=== PATIENT | male | born 1970 | race Caucasian/White ===

== ENCOUNTER 2016-10-12 10:06 | Day surgery (SDC) | payer BC, OTHER ==
--- NOTE | 2016-10-03 12:27 | HP ---
DATE OF ADMISSION:10/12/2016 . 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 Patient has had excision of masses of the anterior chest wall as well as right arm. They have represented cysts in the past. It is my suspicion that the 2 soft tissue masses back likely represent epidermal occlusion cysts. PATIENTS PAST MEDICAL HISTORY: Significant for GERD, hypertension, and underlying thyroid disorder. PAST SURGICAL HISTORY: Significant for spinal surgery in 1981 and 2008. He has had inguinal hernia surgery in 2013. ALLERGIES: None known. REGULAR MEDICATIONS: Synthroid, losartan. SOCIAL HISTORY: Negative for tobacco, negative for alcohol. FAMILY HISTORY: Father age 71 with history of sluggish thyroid and hypertension. Mother age 69 with history of sluggish thyroid and diabetes. REVIEW OF SYSTEMS: Otherwise, nil. PHYSICAL EXAMINATION: Back: The patient has a 1.5-cm mass involving the mid back just off to the right of the midline as well as one involving the superior right back. No other obvious lesions. No satellite lesions. No regional adenopathy. IMPRESSION: Soft tissue masses of the back x2. Suspect epidermal occlusion cysts. PLAN: Excision soft tissue masses back x2 under local anesthesia with sedation. Indications, alternatives, possible complications were reviewed. Consent obtained. ADENIKE GARCIA M.D. ROMANA/[id number] cc: Oli Graham MD
[2016-10-06 10:50] VITALS: BMI 29.8
[2016-10-12] MEDS ORDERED: LIDOCAINE HCL 1%, 10 MG/ML (20ML VIAL) ONE (12:42)
[2016-10-12] MEDS ORDERED: MIDAZOLAM HCL 2 MG/2 ML SINGLE DOSE VIAL ONE (13:21)
[2016-10-12] MEDS ORDERED: PROPOFOL 20 ML ONE (13:27)
[2016-10-12] MEDS ORDERED: ceFAZolin SODIUM 1 GM VIAL ONE (13:36)
[2016-10-12] MEDS ORDERED: LIDOCAINE 1%-EPI 1:100,000 30 ML MDV IJ ONE (13:37)
[2016-10-12] MEDS ORDERED: LIDOCAINE 1%/EPI 1:100000 (50 ML MULTI DOSE VIAL) INF ONE ×2 (13:40)
[2016-10-12] MEDS ORDERED: ONDANSETRON 4 MG/2 ML VIAL ONE (13:50)
[2016-10-12] MEDS ORDERED: KETOROLAC TROMETHAMINE 30 MG/1 ML VIAL ONE (13:50)
[2016-10-12] MEDS ORDERED: LIDOCAINE HCL/PF 2% SDV 5ML VIAL ONE (13:51)
[2016-10-12] MEDS ORDERED: BACITRACIN 30 GM TUBE TOPICAL OINTMENT ONE (13:53)
[2016-10-12] MEDS ORDERED: BACITRACIN 30 GM TUBE TOPICAL OINTMENT TP ONE (14:05)
[2016-10-12 14:52] VITALS: PULSE 52; TEMP 98.2
[2016-10-12 15:18] VITALS: BP 122/74
--- NOTE | 2016-10-12 20:43 | OP ---
DATE OF OPERATION: 10/12/2016 PREOPERATIVE DIAGNOSIS: Soft tissue mass right upper and right central back. POSTOPERATIVE DIAGNOSIS: Soft tissue mass right upper and right central back. PROCEDURE: Excision soft tissue mass right upper back/intermediate wound closure (3 cm) and Excision soft tissue central back/intermediate wound closure (3 cm). OPERATING SURGEON: Mingo Arevaol M.D. MAGNAFLUX OPERATOR: None. ANESTHESIA: Skip Mckeon MD / 1% lidocaine with epinephrine/MAC. 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 I thought they likely represented epidermal inclusion cysts. Indications, alternatives, possible complications reviewed. Consent obtained. DESCRIPTION OF PROCEDURE: With the patient in the left lateral decubitus position, the right upper and central back were prepped and draped in sterile fashion with chlorhexidine. Restricting our attention to the central back, a longitudinal 3-cm elliptical incision was made about the palpable abnormality and deepened into the subcutaneous space. Lesion was excised in its entirety with a rim of overlying normal skin and subcutaneous fat. After adequate hemostasis, the wound was closed in layers. The deeper subcutaneous tissues were approximated using interrupted 3-0 chromic suture. The subcuticular layer was approximated with 3-0 Vicryl sutures. Skin edges were approximated using continuos 5-0 nylon suture. Now turning our attention to the upper lesion, after placement again of local anesthesia, an elliptical oblique 3-cm lesion was made about the nodular abnormality. Again, this incision was deepened into the subcutaneous space. The wound was closed again as described for the above lesion. Bacitracin applied at each level. Dressings were applied. Surgery terminated. Sponge counts: Correct. Estimated blood loss: Minimal. Specimens: Soft tissue mass right upper and central back. Drains: None. Patient tolerated the procedure, and the procedure was terminated. MINGO AREVALO M.D. RR/[id number] cc: Saeid Aguilar
--- NOTE | 2016-10-14 11:40 | PATH ---
Surgical Pathology Report Patient Name: MAXX DELA CRUZ [facility]. Rec. #: [id number] /Age/Gender: 1970 (Age: 46) / M Account: [id number] Location: [facility] Taken: 10/12/2016 Received: 10/12/2016 Reported: 10/14/2016 Physicians: Mingo Arevalo M.D. Specimen(s) Received A: SOFT TISSUE MASS MID-BACK B: SOFT TISSUE MASS UPPER BACK Clinical History Soft tissue mass back x2 Final Diagnosis A. SKIN, MID BACK, EXCISION: EPIDERMAL INCLUSION CYST (KERATINOUS CYST). B. SKIN, UPPER BACK, EXCISION: EPIDERMAL INCLUSION CYST (KERATINOUS CYST). Electronically Signed Silvio Leiva M.D. Gross Description A. Received in formalin, labeled "soft tissue mass mid back," is a 2.7 x 1.0 cm lowry, elliptical, unoriented portion of skin excised to a depth of 1.0 cm. The epidermal surface is unremarkable. Sectioning reveals an intact cyst containing sebaceous material. Journal Entry Audit Clerk sections are submitted in one cassette. B. Received in formalin, labeled "soft tissue mass upper back," is a 2.7 x 0.9 cm lowry, elliptical, unoriented portion of skin excised to depth of 0.9 cm. The epidermal surface is unremarkable. Sectioning reveals a possible cyst. Journal Entry Audit Clerk sections are submitted in one cassette. /10/13/2016 saudi10/13/2016
== END 2016-10-12 15:20 | disposition home or self-care (01) ==
LOC: FASU 10:06
PROVIDERS: ATTEND Surgery
PROC: 0JB70ZZ Excision of Back Subcutaneous Tissue and Fascia, Open Approach (ICD-10-PCS; principal; 2016-10-12 11:30)
DX: D21.6 Benign neoplasm of connective and other soft tissue of trunk, unspecified (principal)
CPT/HCPCS: 88304-TC

== ENCOUNTER 2017-01-11 15:10 | Emergency (ER) | payer OTHER, BC ==
[2017-01-11 15:48] VITALS: BP 133/83; PULSE 60; TEMP 97.9; BMI 30.6
[2017-01-11] MEDS ORDERED: IBUPROFEN 600 MG TABLET (FP) PO ONE ×2 (17:19→17:24)
--- NOTE | 2017-01-11 17:25 | PDOC ---
History of Present Illness - General Chief Complaint: Injury Stated Complaint: FALL/ LT ELBOW, LT HIP, RT HAMSTRING PAIN Time Seen by Provider: 01/11/17 15:56 History Source: Patient Exam Limitations: No Limitations - History of Present Illness Initial Comments: 01/11/17 17:34 My Chief complaint: Pain left elbow, left hip area and left lower back pain History of present illness: Patient is a 46 year old [employer] with a history of hypertension, hypothyroidism, 4 previous lower back surgeries with spinal fusion from L2 to S1 here today due to patient tripping on root of a tree while at work. He fell on his left sidel hitting his left elbow, left hip and pelvis. Patient reports that pain in left elbow with movement however patient feels a tingling sensation from elbow to hand. He reports that he had his walkie talkie on his left hip area. He has slight point tenderness to his left lumbar paravertebral area with palpation. Denies any radiation of pain down his legs or any incontinency or any saddle anesthesia. He has not taken anything for pain. Occurred: reports: just prior to arrival Severity: reports: moderate Pain Location: reports: back (left lower ), pelvis (left lateral pelvis/ hip), upper extremity (left elbow) Method of Injury: Yes: fall (tripped over at tree root ) Modifying Factors: improves with: None Loss of Consciousness: no loss of consciousness Past History - Past Medical History Allergies/Adverse Reactions: Allergies Allergy/AdvReac Type Severity Reaction Status Date / Time No Known Allergies Allergy Verified 01/11/17 15:48 Home Medications: Ambulatory Orders Levothyroxine [Synthroid -] 50 mcg PO DAILY 07/31/15 Losartan/Hydrochlorothiazide [Losartan-Hctz 50-12.5 mg Tab] 1 each PO DAILY Anemia: No Asthma: No Cancer: No Cardiac Disorders: No CVA: No COPD: No CHF: No Dementia: No Diabetes: No GI Disorders: No Disorders: No HTN: Yes Hypercholesterolemia: No Liver Disease: No Seizures: No Thyroid Disease: Yes (HYPO.) - Surgical History Abdominal Surgery: Yes (HERNIA) Appendectomy: No Cardiac Surgery: No Cholecystectomy: No Lung Surgery: No Neurologic Surgery: No Orthopedic Surgery: Yes (spinal fusion 2x 82 1x83 [id number]) - Immunization History Td Vaccination: (05/16/06) Immunization Up to Date: Yes - Psycho/Social/Smoking Cessation Hx Anxiety: No Suicidal Ideation: No Smoking Status: No Smoking History: Never smoked Have you smoked in the past 12 months: No Number of Cigarettes Smoked Daily: 0 Information on smoking cessation initiated: No Hx Alcohol Use: No Drug/Substance Use Hx: No Substance Use Type: None Hx Substance Use Treatment: No Review of Systems - Review of Systems Able to Perform ROS?: Yes Constitutional: No: Symptoms Reported HEENTM: No: Symptoms Reported Respiratory: No: Symptoms reported Cardiac (ROS): No: Symptoms Reported ABD/GI: No: Symptoms Reported : No: Symptoms Reported Musculoskeletal: Yes: Back Pain (left lower, left lateral pelvis/hip ), Joint Pain (left elbow) Integumentary: No: Symptoms Reported Neurological: No: Symptoms reported *Physical Exam - Vital Signs Last Vital Signs Temp Pulse Resp BP Pulse Ox 97.9 F 60 18 133/83 97 01/11/17 15:44 01/11/17 15:44 01/11/17 15:44 01/11/17 15:44 01/11/17 15:44 - Physical Exam General Appearance: Yes: Appropriately Dressed Respiratory/Chest: positive: Lungs Clear, Normal Breath Sounds. negative: Chest Tender, Respiratory Distress Cardiovascular: positive: Regular Rhythm, Regular Rate, S1, S2 Musculoskeletal: positive: Normal Inspection, Vertebral Tenderness (left lumbar laterally ), Other (left lateral pelvis, hip). negative: CVA Tenderness, CVA Tenderness (R), CVA Tenderness (L) Extremity: positive: Normal Capillary Refill, Normal Inspection, Normal Range of Motion (left elbow ), Tender (left elbow ). negative: Swelling Integumentary: positive: Normal Color Neurologic: positive: Alert, Normal Response, Motor Strength 5/5 (b/l upper and lower extremities), Respond to painful stimul (b/l ), Responsive. negative: Numbness, Sensory Deficit (legs or arms ) Medical Decision Making - Medical Decision Making 01/11/17 17:39 Patient is a 46 year old [employer] with a history of hypertension, hypothyroidism, 4 previous lower back surgeries with spinal fusion from L2 to S1 here today due to patient tripping on root of a tree while at work. He fell on his left sidel hitting his left elbow, left hip and pelvis. Patient reports that pain in left elbow with movement however patient feels a tingling sensation from elbow to hand. He reports that he had his walkie talkie on his left hip area. He has slight point tenderness to his left lumbar paravertebral area with palpation. Denies any radiation of pain down his legs or any incontinency or any saddle anesthesia. He has not taken anything for pain. 01/11/17 17:39 r/o mali abnormality left elbow r/o mali abnormality lumbar spine r/o fracture left hip/pelvis PLAN: xray left elbow unspecific for millimeter calcification adjacent to the medial epicondyles. No definite soft tissue swelling likely secondary to chronic medial epicondylitis cannot exclude an acute injury presently. Correlate clinically per Dr. Oretga patient has minimal point tenderness to medial epicondyles (pt had Old chip fx according to pt) xray left hip/pelvic no acute pathology generative changes bilaterally per Dr. Ortega xray lumbar sacral spine no acute pathology fixation rods and screws in place L3 -S1 with chronic facet changes no gross evidence of acute injury per Dr. Ortega Ibuprofen 600 mg po now 01/11/17 18:29 follow up with your orthopedist as soon as possible follow up with occupational health 01/11/17 23:13 *DC/Admit/Observation/Transfer Diagnosis at time of Disposition: Elbow pain, left, Hip pain, left Low back pain Qualifiers: Chronicity: acute Back pain laterality: left Sciatica presence: without sciatica Qualified Code(s): M54.5 - Low back pain - Discharge Dispostion Disposition: HOME Condition at time of disposition: Stable - Referrals Referrals: Oli Graham MD [Primary Care Provider] - - Patient Instructions Additional Instructions: Follow up with orthopedist as soon as possible for further evaluation Avoid any strenuous activities or exercise until cleared by orthopedist to do so Take ibuprofen as needed as directed by client success manager for pain Return to emergency room if worsening pain or any numbness of the legs or groin or any incontinency Patient voiced understanding of discharge instructions and all questions were answered - Post Discharge Activity Work/School Note: Back to Work
== END 2017-01-11 18:37 | disposition home or self-care (01) ==
LOC: JERFT 15:10
DX: M54.5 Low back pain (principal); I10 Essential (primary) hypertension; Y99.0 Civilian activity done for income or pay; W01.0XXA Fall on same level from slipping, tripping and stumbling without subsequent striking against object, initial encounter; Y93.89 Activity, other specified; Y92.488 Other paved roadways as the place of occurrence of the external cause
CPT/HCPCS: 72100-TC; 73070-TC-LT; 73523-TC; 99281-25

== ENCOUNTER 2017-04-11 14:46 | Emergency (ER) | payer OTHER, BC ==
[2017-04-11 15:01] VITALS: BP 140/102; PULSE 67; TEMP 98.4; BMI 29.8
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
[2017-04-11] MEDS ORDERED: KETOROLAC TROMETHAMINE 60 MG/2 ML VIAL ONE (15:45)
[2017-04-11] MEDS ORDERED: diazePAM 5 MG TABLET ONE (15:45)
[2017-04-11] MEDS ORDERED: KETOROLAC TROMETHAMINE 60 MG/2 ML VIAL IM ONE (15:47)
[2017-04-11] MEDS ORDERED: diazePAM 5 MG TABLET PO ONE (15:47)
== END 2017-04-11 18:07 | disposition home or self-care (01) ==
LOC: JER 14:46
PROC: 3E0233Z Introduction of Anti-inflammatory into Muscle, Percutaneous Approach (ICD-10-PCS; principal; 2017-04-11)
DX: S16.1XXA Strain of muscle, fascia and tendon at neck level, initial encounter (principal); V43.54XA Car driver injured in collision with van in traffic accident, initial encounter; Y92.414 Local residential or business street as the place of occurrence of the external cause; Y93.89 Activity, other specified; Y99.0 Civilian activity done for income or pay; I10 Essential (primary) hypertension; E03.9 Hypothyroidism, unspecified; K21.9 Gastro-esophageal reflux disease without esophagitis
CPT/HCPCS: 99281-25

== ENCOUNTER 2017-04-24 14:15 | Emergency (ER) | payer BC, OTHER ==
[2017-04-24 14:25] VITALS: BP 142/103; PULSE 62; TEMP 98.4; BMI 31.1
--- NOTE | 2017-04-24 14:51 | PDOC ---
History of Present Illness <Alexey Kaplan - Last Filed: 04/24/17 19:34> - General History Source: Patient Exam Limitations: No Limitations - History of Present Illness Initial Comments: 04/24/17 19:39 M Patient with h/o diverticulitis hypertension, hypothyroidism (levothyroxine), GERD (omeprazole), tarsal tunnel syndrome, and spinolithesis s/p spinal fusion ( L2-Sacrum with screws and rods), sent by his pcp Dr. Graham to get evaluated in ED for acute flare of diverticulitis on LLQ pain and 3 episodes of diarrhea yesterday. No fever, nausea, vomiting, hematechezia or tarry stools. 04/24/17 19:42 <John Muñoz - Last Filed: 04/24/17 19:56> - General Chief Complaint: Pain Stated Complaint: LLQ ABD PAIN Time Seen by Provider: 04/24/17 14:47 Past History <Alexey Kaplan - Last Filed: 04/24/17 19:34> - Past Medical History Anemia: No Asthma: No Cancer: No Cardiac Disorders: No CVA: No COPD: No CHF: No Dementia: No Diabetes: No GI Disorders: Yes (DIVERTICULITIS) Disorders: No HTN: Yes Hypercholesterolemia: No Liver Disease: No Psychiatric Problems: No Seizures: No Thyroid Disease: Yes (HYPO.) - Surgical History Abdominal Surgery: Yes (HERNIA) Appendectomy: No Cardiac Surgery: No Cholecystectomy: No Lung Surgery: No Neurologic Surgery: No Orthopedic Surgery: Yes (spinal fusion 2x 82 1x83 [id number]) - Immunization History Td Vaccination: (05/16/06) Immunization Up to Date: Yes - Psycho/Social/Smoking Cessation Hx Anxiety: No Suicidal Ideation: No Smoking Status: No Smoking History: Never smoked Have you smoked in the past 12 months: No Number of Cigarettes Smoked Daily: 0 Information on smoking cessation initiated: No Hx Alcohol Use: (rare) Drug/Substance Use Hx: No Substance Use Type: None Hx Substance Use Treatment: No <John Muñoz - Last Filed: 04/24/17 19:56> - Past Medical History Allergies/Adverse Reactions: Allergies Allergy/AdvReac Type Severity Reaction Status Date / Time No Known Allergies Allergy Verified 04/11/17 14:50 Home Medications: Ambulatory Orders Levothyroxine [Synthroid -] 50 mcg PO DAILY 07/31/15 Losartan/Hydrochlorothiazide [Losartan-Hctz 50-12.5 mg Tab] 1 each PO DAILY Cyclobenzaprine HCl [Flexeril 10 mg] 10 mg PO BID PRN #20 tablet 04/11/17 Levofloxacin [Levaquin] 750 mg PO DAILY #10 tablet 04/24/17 Metronidazole [Flagyl -] 500 mg PO QID #40 tablet 04/24/17 Review of Systems - Review of Systems Constitutional: No: Symptoms Reported HEENTM: No: Symptoms Reported Respiratory: No: Symptoms reported Cardiac (ROS): No: Symptoms Reported ABD/GI: Yes: See HPI : No: Symptoms Reported Musculoskeletal: No: Symptoms Reported Integumentary: No: Symptoms Reported Neurological: No: Symptoms reported <John Muñoz - Last Filed: 04/24/17 19:56> *Physical Exam - Vital Signs Last Vital Signs Temp Pulse Resp BP Pulse Ox 98.4 F 62 18 142/103 96 04/24/17 14:15 04/24/17 14:15 04/24/17 14:15 04/24/17 14:15 04/24/17 14:15 <Alexey Kaplan - Last Filed: 04/24/17 19:34> - Vital Signs Last Vital Signs Temp Pulse Resp BP Pulse Ox 98.4 F 62 18 142/103 96 04/24/17 14:15 04/24/17 14:15 04/24/17 14:15 04/24/17 14:15 04/24/17 14:15 - Physical Exam General Appearance: Yes: Nourished, Appropriately Dressed. No: Apparent Distress HEENT: positive: EOMI, MAGGIE, Normal ENT Inspection Neck: positive: Trachea midline, Normal Thyroid. negative: Tender Respiratory/Chest: positive: Lungs Clear, Normal Breath Sounds. negative: Chest Tender Cardiovascular: positive: Regular Rhythm, Regular Rate, S1, S2 Gastrointestinal/Abdominal: positive: Normal Bowel Sounds, Tender (LLQ), Flat, Soft, Guarding. negative: Rebound Extremity: positive: Normal Capillary Refill Integumentary: positive: Normal Color, Dry, Warm. negative: Clammy, Diaphoresis <John Muñoz - Last Filed: 04/24/17 19:56> ED Treatment Course - LABORATORY CBC & Chemistry Diagram: 04/24/17 15:30 04/24/17 15:30 - ADDITIONAL ORDERS Additional order review: Laboratory Results 04/24/17 04/24/17 17:00 15:30 Sodium 136 Potassium 4.1 Chloride 102 Carbon Dioxide 27 Anion Gap 7 L BUN 17 Creatinine 1.0 Creat Clearance w eGFR > 60 Random Glucose 94 Calcium 9.5 Total Bilirubin 0.6 AST 18 ALT 17 Alkaline Phosphatase 56 D Total Protein 6.9 Albumin 4.4 Urine Color Yellow Urine Appearance Clear Urine pH 5.5 Ur Specific [place] 1.010 Urine Protein Negative Urine Glucose (UA) Negative Urine Ketones Negative Urine Blood Negative Urine Nitrite Negative Urine Bilirubin Negative Urine Urobilinogen 0.2 Ur Leukocyte Esterase Negative 04/24/17 15:30 RBC 4.35 MCV 92.6 MCHC 33.8 RDW 12.1 MPV 9.4 Neutrophils % 66.3 Lymphocytes % 18.5 Monocytes % 9.1 Eosinophils % 4.8 H Basophils % 1.3 - Medications Given in the ED: ED Medications Discontinued Medications Generic Name Dose Route Start Last Admin Trade Name Miguel PRN Reason Stop Dose Admin Ibuprofen 800 mg 04/24/17 16:19 04/24/17 16:40 Caldolor Injection - IVPB 04/24/17 16:20 800 mg ONCE ONE Administration <Alexey Kaplan - Last Filed: 04/24/17 19:34> - LABORATORY CBC & Chemistry Diagram: 04/24/17 15:30 04/24/17 15:30 <John Muñoz - Last Filed: 04/24/17 19:56> Medical Decision Making - Medical Decision Making 04/24/17 19:48 M with pmh of diverticulitis sent to ed for acute flare evaluation CT scan consistent with acute colitis/diverticulitis in distal descending colon without extravasation of air or abscess formation. PAtient started on IV metrodinazole and levofloxacin +pain management as well as rest of abx course outpatient PO f/u with Dr. Graham on or at Dr. Graham's convenience. <John Muñoz - Last Filed: 04/24/17 19:56> *DC/Admit/Observation/Transfer <Alexey Kaplan - Last Filed: 04/24/17 19:34> - Discharge Dispostion Admit: No <John Muñoz - Last Filed: 04/24/17 19:56> Diagnosis at time of Disposition: Diverticulitis Qualifiers: Diverticulitis site: large intestine Diverticulitis bleeding: without bleeding Diverticulitis complication: without perforation or abscess Qualified Code(s): K57.32 - Diverticulitis of large intestine without perforation or abscess without bleeding - Discharge Dispostion Disposition: HOME Condition at time of disposition: Good - Prescriptions Prescriptions: Metronidazole [Flagyl -] 500 mg PO QID #40 tablet Levofloxacin [Levaquin] 750 mg PO DAILY #10 tablet - Referrals Referrals: Oli Graham MD [Primary Care Provider] - - Patient Instructions Printed Discharge Instructions: DI for Diverticulitis Additional Instructions: Mr Darby- You do have diverticulitis. Start the antibiotics tomorrow. You got them here tonight before you left. Return to us if worse See Dr. Graham on Monday or
--- NOTE | 2017-04-24 15:25 | PDOC ---
Attending Attestation - Resident Resident Name: John Muñoz - ED Attending Attestation I have performed the following: I have examined & evaluated the patient, The case was reviewed & discussed with the resident, I agree w/resident's findings & plan, Exceptions are as noted - HPI HPI: 04/24/17 15:23 46 yo with hx of diverticulitis feels he is having a flare, after consultation with his physician comes to er for eval of abdominal pain possible diverticulitis - Physicial Exam PE: 04/24/17 15:24 Non toxic, NAD, Abd tender without peritoneal signs or surgical abdomen. - Medical Decision Making 04/24/17 15:[address] Muñoz's assessment and plan...... labs and ct, meds and iv hydration
[2017-04-24] MEDS ORDERED: IBUPROFEN 800 MG/8 ML IJ IVPB ONE ×2 (16:19→16:32)
[2017-04-24 16:41] LABS: ALBUMIN 4.4 g/dl (3.5-5.0); ALK PHOS 56 U/L (32-92); ANION GAP 7 (8-16); BILIRUBIN,TOTAL 0.6 mg/dl (0.2-1.0); CALCIUM 9.5 mg/dl (8.4-10.2); CO2 27 mmol/L (22-28); GLUCOSE,RANDOM 94 mg/dl (74-106); SGOT/AST 18 U/L (10-42); SGPT/ALT 17 U/L (10-40); TOT PROT 6.9 g/dl (6.4-8.3)
[2017-04-24 16:51] LABS: BASOPHIL 1.3 % (0-2.0); EOSINOPHIL 4.8 % (0-4.5); MCH 31.3 pg (25.7-33.7); MCHC 33.8 g/dl (32.0-35.9); MEAN CELL VOLUME 92.6 fl (80-96); MEAN PLT VOLUME 9.4 fl (7.5-11.1); NEUTROPHILS 66.3 % (42.8-82.8); PLATELET COUNT 220 K/MM3 (134-434); RDW 12.1 % (11.9-15.9); WHITE BLOOD COUNT 8.2 K/mm3 (4.0-10.8)
[2017-04-24 17:10] LABS: PH,URINE 5.5 (4.5-8); URINE APPEARANCE Clear; URINE BILIRUBIN Negative (NEGATIVE); URINE BLOOD Negative (NEGATIVE); URINE GLUCOSE (UA) Negative (NEGATIVE); URINE KETONE Negative (NEGATIVE); URINE LEUK ESTERASE Negative (NEGATIVE); URINE NITRITE Negative (NEGATIVE); URINE PROTEIN Negative (NEGATIVE); URINE UROBILINOGEN 0.2 (0.2-1.0)
[2017-04-24 17:11] LABS: URINE COLOR YELLOW
[2017-04-24] MEDS ORDERED: LEVOFLOXACIN 750 MG IVPB 150 ML IVPB ONE ×2 (19:22→19:24)
[2017-04-24] MEDS ORDERED: METRONIDAZOLE 500 MG PREMIXED 100 ML IVPB ONE ×2 (19:22→19:25)
== END 2017-04-24 20:55 | disposition home or self-care (01) ==
LOC: FER 14:15
PROC: 3E03329 Introduction of Other Anti-infective into Peripheral Vein, Percutaneous Approach (ICD-10-PCS; principal; 2017-04-24)
PROC: 3E033GC Introduction of Other Therapeutic Substance into Peripheral Vein, Percutaneous Approach (ICD-10-PCS; 2017-04-24)
DX: K57.32 Diverticulitis of large intestine without perforation or abscess without bleeding (principal); I10 Essential (primary) hypertension; E03.9 Hypothyroidism, unspecified; K21.9 Gastro-esophageal reflux disease without esophagitis; Z98.1 Arthrodesis status
CPT/HCPCS: 36415; 74177-TC; 80053; 81003; 85025; 99283-25

== ENCOUNTER 2017-06-23 13:26 | Emergency (ER) | payer BC, OTHER ==
[2017-06-23 13:31] VITALS: BP 128/93; PULSE 94; TEMP 98.1; BMI 29.8
[2017-06-23] MEDS ORDERED: LIDOCAINE 1%/EPI 1:100000 (20 ML MULTI DOSE VIAL) ONE (14:39)
--- NOTE | 2017-06-23 15:36 | PDOC ---
History of Present Illness - General Chief Complaint: Injury Stated Complaint: FALL Time Seen by Provider: 06/23/17 14:03 - History of Present Illness Initial Comments: 06/23/17 15:16 CHIEF COMPLAINT: laceration HISTORY OF PRESENT ILLNESS: 46 yo M with hx of HTN, spinal fusion and diverticulitis presents to fast track with laceration R veliz s/p fall. PAtient reports that he tripped and hit his leg onto a guardrail. Denies injury to any other part of the body, denies LOC. PAtient is ambulatory with normal gait in ED. PAtient states he received his last tetanus shot in 2014. PAST MEDICAL HISTORY: as per HPI FAMILY HISTORY: Denies SOCIAL HISTORY: Denies tobacco, alcohol, illicit drug use. SURGICAL HISTORY: Denies ALLERGIES: No known drug allergies REVIEW OF SYSTEMS General/Constitutional: Denies fever or chills. Denies weakness, weight change. HEENT: Denies change in vision. Denies ear pain or discharge. Denies sore throat. Cardiovascular: Denies chest pain or shortness of breath. Respiratory: Denies cough, wheezing, or hemoptysis. Gastrointestinal: Denies nausea, vomiting, diarrhea or constipation. Denies rectal bleeding. Genitourinary: Denies dysuria, frequency, or change in urination. Musculoskeletal: Denies joint or muscle swelling or pain. Denies neck or back pain. Skin and breasts: "I fell and hit my veliz on a guardrail." PHYSICAL EXAM General Appearance: Well-appearing, appropriately dressed. No apparent distress , no intoxication. HEENT: EOMI, PERRLA, normal ENT inspection, normal voice, TMs normal, pharynx normal. No conjunctival pallor. No photophobia, scleral icterus. Respiratory/Chest: Lungs CTAB. Cardiovascular: RRR. S1, S2. Vascular Pulses: Dorsalis-Pedis (R): 2+, Dorsalis-Pedis (L): 2+ Gastrointestinal/Abdominal: Normal bowel sounds. Abdomen soft, non-distended. No tenderness or rebound tenderness. No organomegaly, pulsatile mass, guarding , hernia, hepatomegaly, splenomegaly. Musculoskeletal/Extremities: Normal inspection. FROM of all extremities, normal capillary refill. Pelvis Stable. No CVA tenderness. No tenderness to extremities, pedal edema, swelling, erythema or deformity. Integumentary: 3 cm flap laceration, deep to muscle, to anterior R veliz with contused tissue. No bony exposure. Appropriate color, dry, warm. No cyanosis, erythema, jaundice or rash Neurologic: sandblast or shotblast equipment tender II-XII intact. Fully oriented, alert. Appropriate mood/affect. Motor strength 5/5. No appreciable EOM palsy, facial droop or sensory deficit. 06/23/17 15:21 Past History - Past Medical History Allergies/Adverse Reactions: Allergies Allergy/AdvReac Type Severity Reaction Status Date / Time No Known Allergies Allergy Verified 06/23/17 13:31 Home Medications: Ambulatory Orders Levothyroxine [Synthroid -] 50 mcg PO DAILY 07/31/15 Losartan/Hydrochlorothiazide [Losartan-Hctz 50-12.5 mg Tab] 1 each PO DAILY Cyclobenzaprine HCl [Flexeril 10 mg] 10 mg PO BID PRN #20 tablet 04/11/17 Anemia: No Asthma: No Cancer: No Cardiac Disorders: No CVA: No COPD: No CHF: No Dementia: No Diabetes: No GI Disorders: Yes (DIVERTICULITIS) Disorders: No HTN: Yes Hypercholesterolemia: No Liver Disease: No Psychiatric Problems: No Seizures: No Thyroid Disease: Yes (HYPO.) - Surgical History Abdominal Surgery: Yes (HERNIA) Appendectomy: No Cardiac Surgery: No Cholecystectomy: No Lung Surgery: No Neurologic Surgery: No Orthopedic Surgery: Yes (spinal fusion 2x 82 1x83 [id number]) - Immunization History Td Vaccination: (05/16/06) Immunization Up to Date: Yes - Suicide/Smoking/Psychosocial Hx Smoking Status: No Smoking History: Never smoked Have you smoked in the past 12 months: No Number of Cigarettes Smoked Daily: 0 Information on smoking cessation initiated: No Hx Alcohol Use: No Drug/Substance Use Hx: No Substance Use Type: None Hx Substance Use Treatment: No *Physical Exam - Vital Signs Last Vital Signs Temp Pulse Resp BP Pulse Ox 98.1 F 94 H 18 128/93 99 06/23/17 13:06/23/17 13:06/23/17 13:06/23/17 13:06/23/17 13:29 Procedures - Consent Consent obtained: Verbal - Laceration/Wound Repair Right Anterior Distal Leg Wound Length: 2.6 to 5.0 cm Wound Explored: clean, no foreign body present Wound's Depth, Shape: into muscle, irregular, flap, contused tissue Irrigated w/ Saline: Yes Betadine Prep: Yes Anesthesia: 1% Lidocaine w/ Epi Amount of Anesthetic (ccs): 6 Wound Repaired With: Sutures Suture Size/Type: 4:0 Number of Sutures: 6 Layer Closure: No Sterile Dressing Applied: Yes (xeroform, kerlix dressing) ED Treatment Course - RADIOLOGY Radiology Studies Ordered: Category Date Time Status LEG TIB/FIB-RIGHT [RAD] Stat Radiology 06/23/17 14:16 Completed Medical Decision Making - Medical Decision Making 06/23/17 15:36 46 yo M with hx of HTN, spinal fusion and diverticulitis presents to fast track with laceration R veliz s/p fall. -Tdap updated -laceration repair (see procedure note) Advised patient of post lac repair instructions and of signs and symptoms for return to ER. Advised patient to return to PCP or fast track in 10-14 days for suture removal. Patient verbalized understanding and agrees to plan. *DC/Admit/Observation/Transfer Diagnosis at time of Disposition: Laceration - Discharge Dispostion Disposition: HOME Condition at time of disposition: Stable Admit: No - Referrals Referrals: Oli Graham MD [Primary Care Provider] - - Patient Instructions Printed Discharge Instructions: DI for Laceration Repair -- Simple Additional Instructions: As discussed, please keep the area clean and dry for the next 24 hours. Afterwards you may wash with mild soap and warm water. Please return to fast track or your primary care doctor in 10-14 days for suture removal. If you develop any redness, swelling, warmth, or increased pain to the injury, or you develop fever, nausea, vomiting, diarrhea, chills, or any new or worsening symptoms, please return to the ER IMMEDIATELY.
== END 2017-06-23 15:24 | disposition home or self-care (01) ==
LOC: JERFT 13:26
PROC: 0JQN0ZZ Repair Right Lower Leg Subcutaneous Tissue and Fascia, Open Approach (ICD-10-PCS; principal; 2017-06-23)
DX: S81.811A Laceration without foreign body, right lower leg, initial encounter (principal); W22.8XXA Striking against or struck by other objects, initial encounter; Y93.89 Activity, other specified; Y92.89 Other specified places as the place of occurrence of the external cause; Y99.8 Other external cause status
CPT/HCPCS: 73590-TC-RT; 99281-25

== ENCOUNTER 2017-07-18 09:24 | Inpatient (IN) | payer BC, OTHER ==
[2017-07-20] MEDS ORDERED: PEG 3350/NA SULF BICARB CL/KCL 4000 ML SOLN.RECON PO ONE (11:30)
[2017-07-20 16:11] VITALS: BMI 31.1
[2017-07-21] MEDS ORDERED: LOSARTAN 50MG/HCTZ 12.5MG 1 TAB (FP) PO SCH ×2 (06:00→10:00)
[2017-07-21] MEDS ORDERED: ERTAPENEM SODIUM 1 GM in SODIUM CHLORIDE 50 ML IVPB ONE (07:00)
[2017-07-21] MEDS ORDERED: LEVOTHYROXINE NA 50 MCG TABLET (FP) PO SCH (07:00)
[2017-07-21] MEDS ORDERED: GlUCAGON HUMAN RECOMBINANT 1 MG/VIAL ONE (07:34)
[2017-07-21] MEDS ORDERED: PROPOFOL 20 ML ONE (07:54)
[2017-07-21] MEDS ORDERED: MIDAZOLAM HCL 2 MG/2 ML SINGLE DOSE VIAL ONE ×2 (07:54)
[2017-07-21] MEDS ORDERED: ROCURONIUM BROMIDE 50 MG/5 ML VIAL ONE ×4 (07:54→12:11)
[2017-07-21] MEDS ORDERED: ceFAZolin SODIUM 1 GM VIAL IVPB ONE (08:30)
[2017-07-21] MEDS ORDERED: ONDANSETRON 4 MG/2 ML VIAL ONE (08:43)
[2017-07-21] MEDS ORDERED: DEXAMETHASONE SOD PHOSPHATE 4 MG/1 ML VIAL ONE (08:43)
[2017-07-21] MEDS ORDERED: LIDOCAINE HCL/PF 2% SDV 5ML VIAL ONE (08:43)
[2017-07-21] MEDS ORDERED: LIDOCAINE HCL 2% JELLY (5 ML/TUBE) ONE (08:43)
[2017-07-21] MEDS ORDERED: NEOSTIGMINE METHYLSULFATE 0.5 MG/ML - 10 ML MDV ONE (12:39)
--- NOTE | 2017-07-21 12:49 | OP ---
Operative Note - Note: Operative Date: 07/21/17 Pre-Operative Diagnosis: diverticulitis Operation: laparoscopic low anterior resection Findings: thickened sigmoid colon, significant abdominal adhesions Post-Operative Diagnosis: Same as Pre-op Surgeon: Phi Walden Fighter Pilot: Sin Bell Anesthesia: General Specimens Removed: rectosigmoid colon Estimated Blood Loss (mls): 50 Drains & Tubes with Location: solitario pelvis Operative Report Dictated: Yes
[2017-07-21] MEDS: HYDROmorphone HCL CARPU-JECT 2 MG/1 ML DISP.SYRIN ONE ×2 (13:40→14:05)
[2017-07-21] MEDS: HYDROmorphone HCL CARPU-JECT 2 MG/1 ML DISP.SYRIN IVPB ONE ×3 (13:55→17:04)
[2017-07-21] MEDS ORDERED: ONDANSETRON 4 MG/2 ML VIAL IVPUSH PRN (13:56)
[2017-07-21] MEDS ORDERED: LACTATED RINGERS SOLUTION 1,000 ML IV SCH ×2 (14:00)
[2017-07-21] MEDS: HYDROmorphone HCL CARPU-JECT 1 MG/1 ML DISP.SYRIN IVPUSH ONE ×2 (15:00→17:04)
[2017-07-21] MEDS: D5-1/2NS+20 MEQ KCL - 1,000 ML IV SCH (17:04)
[2017-07-21] MEDS: morphine CARPU-JECT 8 MG/1 ML DISP.SYRIN IVPB PRN ×2 (18:27→21:33)
--- NOTE | 2017-07-21 19:14 | OP ---
DATE OF OPERATION: 07/21/2017 PREOPERATIVE DIAGNOSIS: History of recurrent diverticulitis, complicated diverticulitis. POSTOPERATIVE DIAGNOSIS: History of recurrent diverticulitis, complicated diverticulitis. PROCEDURE: Laparoscopic low anterior resection, extensive lysis of adhesions, anal dilatation, rigid sigmoidoscopy, peritoneal lavage. SURGEON: Phi Walden MD INSURANCE POLICY CLERK: Sin Bell DO ANESTHESIA: Lindsey Robbins MD (general). ESTIMATED BLOOD LOSS: Minimal. SPECIMEN: Rectosigmoid. INDICATIONS FOR PROCEDURE: This is a 48-year-old gentleman who has had multiple bouts of recurrent diverticulitis since 2010. Initially, he was managed medically. However, in 2017, he had a very bad attack that did respond to medical therapy, and therefore, he is here today for a laparoscopic low anterior resection for his chronic diverticular disease. Past medical comorbidities significant for hypothyroidism, H. pylori gastritis, multiple back issues and C7 radiculopathy. OPERATIVE FINDINGS: 1. Acutely and chronically inflamed diverticular segment of the distal sigmoid/proximal rectum with extension into the prerectal space, that is chronic changed from inflammatory disease. 2. Dense adhesions of small bowel to the retroperitoneum and pelvis. 3. Dense adhesions of omentum to the anterior abdominal wall and to his previous transverse lower abdominal scar. DESCRIPTION OF OPERATIVE PROCEDURE: Patient identified and appropriately positioned on the operating room table. After placement of general anesthesia, the patient was then subsequently placed in a low lithotomy position, the abdomen prepped with ChloraPrep and the perineal region prepped with Betadine. A supraumbilical incision was made, deepened to the subcutaneous tissue. The fascia was divided sharply. The peritoneum identified and incised, and under direct vision, a Veress needle followed by structural needle placed. Opening pressure of 3. The remaining ports were placed under direct vision. The only port to be placed initially was a 5-mm port through his left lower quadrant. This was the only portion of the abdomen that was entered without dense adhesions. Next, working through that 5-mm left lower quadrant port site, the omentum that was densely adherent to the anterior abdominal wall and lateral abdominal wall in the midline and right side was completely taken down with blunt, sharp, and LigaSure dissection as needed. Once the omentum was mobilized, the remaining ports were placed under direct vision as mentioned. At this point, the patient was then placed in a Trendelenburg position. The omentum reflected to the upper abdomen, as well as the small bowel. However, the distal ileum and a portion of the jejunum could not be mobilized into the upper abdomen due to the adhesions into the retroperitoneum and pelvic sidewalls from his previous anterior fusion and surgery. These adhesions were then subsequently taken down with sharp dissection and the bowel mobilized as best as possible. The fold of Treves was taken down as well to facilitate this movement of the small bowel. In total, the lysis of adhesions required over an hour to an hour and 1/2 of operative time just to go through all the dense adhesions from his previous anterior fusion operation. Once the adhesions were taken down, attention was now focused to the operative site. The patient clearly had diverticular disease in the distal sigmoid, extending into the proximal rectum. However, I suspect, based on his last episode, the disease had actually tracked into the presacral space and along the rectum. Typically, I would approach the mediolateral. However, with this finding, I did [id number]. The colon on the left side was then rolled medially, and the white line of Toldt was identified and sharply divided. The colon now rolled medially, and the structures in the retroperitoneum were left intact, such as the gonadal vessels. As the colon was rolled more medially, the retroperitoneum with the ureter was identified. The plane encasing the ureter was not violated at this point nor was it violated during the operation. This was left intact along the retroperitoneum. Next, the proximal and mid-rectum that had been densely adherent and scarred to the left pelvic sidewall and sacrum from the disease was then slowly mobilized out of the presacral space. This was done with blunt and sharp dissection. The inflamed peritoneal reflection on the left side was divided with the LigaSure device. Once the left side was mobilized, attention now focused to the right side. Using a similar technique, the peritoneal reflection on the right lateral wall of the rectum was mobilized and freed. The superior rectal vessels identified on both sides, and these were then subsequently taken. The rectum now brought out of the prerectal space and the rectum mobilized more into the operative field. The middle rectal vessels on the right and left identified as well and had to be divided to ensure a distal transection site without tension and to be free and easy for the anvil to come up without difficulty and being tethered. Next, the fat around the mid-rectum was then sharply taken with LigaSure device, and the bowel circumferentially cleaned of the mesentery of the rectum. At this point, the colon was now completely mobilized and lifted to the anterior abdominal wall. The presacral vessels were identified as well as the long rectal vessel that gave off the branches to the mesorectum. The mesorectum branches were taken with LigaSure device. The sacral branch was taken in a similar fashion. At this point, the colon was completely devascularized along the left side and sigmoid. The left colon now mobilized more medially and bluntly swept. The loose areolar tissue taken up to the level of the EMORY. At this point, the EMORY branch was not divided, and the gastrocolic ligament was brought down as well as the splenic flexure to ensure an adequate tension-free anastomosis. The splenic flexure was taken down with the LigaSure device, and the splenocolic, gastrocolic, and renocolic ligaments were divided in a similar fashion. Once this was accomplished, there was enough play in the colon to do a tension-free anastomosis without violating the EMORY. The distal line of resection was chosen earlier and divided with a PAO 80 purple-load stapler. Two fires were placed. The second fire was placed into the crotch and well visualized to overlap the first staple line. Grossly, the staple line was intact. The distal rectal stump was pink and viable. At this point, the suprapubic port site was removed under direct vision, and going through his old scar, an incision was made down to the level of the fascia. The fascia was then divided transversely, and using a Pfannenstiel technique, the fascia was off the rectus muscle. The rectus muscle in the midline was divided longitudinally and a wound protector placed. At this point, the operative field was draped off with 4 new drapes and the proximally divided colon brought into the operative field. A colotomy was made, and a 28 anvil was placed and closed over with a PAO 80 3.5-mm stapler. The anvil itself was spiked through the center line of the staple. However, given the lie of the anvil not being perfect, the staple line was subsequently divided, and a hand-sewn 3-0 Prolene pursestring was placed. The anvil was placed under direct vision again and the pursestring cinched and then tied at the level of the anvil with a 2-0 silk tie. The bowel proximally was pink and viable as well without evidence of ischemia. The bowel returned to its anatomic position, the wound protector removed as well as the new drapes. Surgeon and hair or beauty salon assistant changed gloves. The peritoneum was then reapproximated with a running 3-0 Maxon suture. The anterior sheath closed with a running No. 1 PDS suture. The subcutaneous space irrigated. The operative field examined, noted to be hemostatic. At this point, the hair or beauty salon assistant went below, performed an anal dilatation to approximately 3 fingerbreadths, and dilators were subsequently placed under direct vision to the rectal stump staple line, followed by the 28 EEA stapler. The stapler spiked right through the mid-aspect of the transverse staple line and the rectal stump. The 2 ends mated, and the proximal end was made sure not to be twisted. The stapler closed to its appropriate pressure and position. At this point, circumferential evaluation of the 2 ends of the colon that were brought together was noted, and no external tissue was encompassed in the staple line. The stapler fired; stapler removed. Grossly, the staple appeared to be intact. Again, the bowel proximal and distal to the anastomosis was pink and viable. At this point, the anastomosis was submerged in the pelvis under water and air tested for 3 separate times, and there were no air bubbles or leak identified. Next, the rigid sigmoidoscope was opened. The air that was pumped beyond the staple line was milked back, looking for a leak, with a flap effect, and none was identified. At this point, the hair or beauty salon assistant performed limited rigid sigmoidoscopy. Just proximal to the anastomosis, the bowel clearly proximal to the anastomosis (rectum) was pink and viable as well as the bowel distal to this anastomosis (left colon). A 10 flat ANNIE placed and brought through a left lower quadrant port site. The remaining ports removed under direct vision. Port sites were hemostatic. The 12-mm port site was reapproximated with interrupted 0 Vicryl suture, as well as the camera site. All skin closed with abraham. The extraction site was left open and packed with Iodoform gauze. At the conclusion of the case, sponge counts were correct. ATTESTATION: A brief operative note handwritten on the preprinted form. Saeid SHARPE [id number]
[2017-07-22] MEDS: morphine CARPU-JECT 8 MG/1 ML DISP.SYRIN IVPB PRN ×4 (05:45→21:50)
[2017-07-22] MEDS: LEVOTHYROXINE NA 50 MCG TABLET (FP) PO SCH (06:30)
[2017-07-22] MEDS ORDERED: ERTAPENEM SODIUM 1 GM in SODIUM CHLORIDE 50 ML IVPB ONE (07:00)
[2017-07-22 07:23] LABS: MCH 31.8 pg (25.7-33.7); MCHC 35.1 g/dl (32.0-35.9); MEAN CELL VOLUME 90.5 fl (80-96); MEAN PLT VOLUME 8.5 fl (7.5-11.1); PLATELET COUNT 238 K/MM3 (134-434); RDW 12.8 % (11.9-15.9); WHITE BLOOD COUNT 11.7 K/mm3 (4.0-10.0)
--- NOTE | 2017-07-22 07:29 | PN ---
Progress Note (short form) - Note Progress Note: surgery pt seen and examined. feels well. oob. no flatus. minimal discomfort afebrile abd- soft, nt, incisions clean, solitario serous u/o 2600 Laboratory Tests 07/22/17 06:00 WBC 11.7 H chemistry peding A/P 1) Pod#1- cont npo except ice chips, cont ivf, cont thomson, cont solitario 2) prophylaxis- finish invanz, on lovenox, protonix, oob, spirometer 3) discomfort- morphine, oxycodone 4) diverticulitis- follow path 5) follow chemistries
[2017-07-22 07:52] LABS: ANION GAP 5 (8-16); CALCIUM 8.1 mg/dL (8.5-10.1); CO2 32 mmol/L (21-32); GLUCOSE,RANDOM 93 mg/dL (74-106); MAGNESIUM 1.8 mg/dL (1.8-2.4)
[2017-07-22 07:55] LABS: CREATININE 1.3 mg/dL (0.7-1.3); PHOSPHOROUS 3.3 mg/dL (2.5-4.9)
[2017-07-22] MEDS: LOSARTAN 50MG/HCTZ 12.5MG 1 TAB (FP) PO SCH (09:25)
[2017-07-22] MEDS: PANTOPRAZOLE SODIUM 40 MG VIAL IVPUSH SCH (09:25)
[2017-07-22] MEDS: ENOXAPARIN NA (PORCINE) 40 MG/0.4 ML DISP.SYRIN SQ SCH (09:25)
--- NOTE | 2017-07-22 11:38 | PN ---
Progress Note (short form) - Note Progress Note: Anesthesia post op note POD#1. S/P Lap lower anterior resection, diverticulitis. Pat seen and examined. VSS. No apparent post anesthesia complications.Signed off.
[2017-07-22] MEDS: ACETAMINOPHEN 325 MG TABLET (FP) PO PRN ×2 (12:39→18:30)
[2017-07-22] MEDS: oxyCODONE HCL 5 MG TABLET PO PRN ×2 (12:39→18:30)
[2017-07-22] MEDS: D5-1/2NS+20 MEQ KCL - 1,000 ML IV SCH (21:47)
[2017-07-23] MEDS: oxyCODONE HCL 5 MG TABLET PO PRN ×3 (01:29→22:45)
[2017-07-23] MEDS: LEVOTHYROXINE NA 50 MCG TABLET (FP) PO SCH (06:25)
[2017-07-23] MEDS: morphine CARPU-JECT 8 MG/1 ML DISP.SYRIN IVPB PRN (06:25)
--- NOTE | 2017-07-23 09:57 | PN ---
Progress Note (short form) - Note Progress Note: surgery pt seen and examined. still well. oob. no flatus. no discomfort. afebrile abd- soft, nt, moderate distension, u/o 1800 cbc pending A/P 1) Pod#2- cont npo except ice chips, cont ivf, cont thomson, cont solitario 2) prophylaxis- lovenox, protonix, oob, spirometer 3) discomfort- morphine, oxycodone 4) diverticulitis- follow path 5) follow cbc
[2017-07-23] MEDS: LOSARTAN 50MG/HCTZ 12.5MG 1 TAB (FP) PO SCH (10:38)
[2017-07-23] MEDS: ENOXAPARIN NA (PORCINE) 40 MG/0.4 ML DISP.SYRIN SQ SCH (10:38)
[2017-07-23] MEDS: PANTOPRAZOLE SODIUM 40 MG VIAL IVPUSH SCH (10:39)
[2017-07-23 11:02] LABS: BASOPHIL 0.4 % (0-2.0); MCH 31.2 pg (25.7-33.7); MCHC 34.3 g/dl (32.0-35.9); MEAN PLT VOLUME 8.3 fl (7.5-11.1); NEUTROPHILS 76.7 % (42.8-82.8); PLATELET COUNT 243 K/MM3 (134-434); RDW 12.7 % (11.9-15.9); WHITE BLOOD COUNT 11.2 K/mm3 (4.0-10.0)
[2017-07-23] MEDS: ACETAMINOPHEN 325 MG TABLET (FP) PO PRN ×2 (19:00→22:45)
[2017-07-23] MEDS: D5-1/2NS+20 MEQ KCL - 1,000 ML IV SCH ×2 (19:02→22:47)
[2017-07-23] MEDS: ARTIFICIAL TEARS (POLYVINYL ALCOHOL 1.4%) OPTH DROPS OU PRN (22:54)
[2017-07-24] MEDS: LEVOTHYROXINE NA 50 MCG TABLET (FP) PO SCH (06:44)
[2017-07-24] MEDS: ARTIFICIAL TEARS (POLYVINYL ALCOHOL 1.4%) OPTH DROPS OU PRN (06:44)
[2017-07-24 08:37] LABS: ANION GAP 7 (8-16); CO2 30 mmol/L (21-32); GLUCOSE,RANDOM 91 mg/dL (74-106)
[2017-07-24 08:38] LABS: CREATININE 1.1 mg/dL (0.7-1.3)
[2017-07-24] MEDS: oxyCODONE HCL 5 MG TABLET PO PRN ×3 (09:03→23:31)
[2017-07-24] MEDS: PANTOPRAZOLE SODIUM 40 MG VIAL IVPUSH SCH (09:08)
[2017-07-24] MEDS: ENOXAPARIN NA (PORCINE) 40 MG/0.4 ML DISP.SYRIN SQ SCH (09:08)
[2017-07-24] MEDS: LOSARTAN 50MG/HCTZ 12.5MG 1 TAB (FP) PO SCH (09:08)
[2017-07-24] MEDS: ACETAMINOPHEN 325 MG TABLET (FP) PO PRN ×3 (09:26→23:28)
[2017-07-24] MEDS ORDERED: ONDANSETRON 4 MG/2 ML VIAL ONE (09:53)
[2017-07-24 10:36] LABS: BASOPHIL 0.8 % (0-2.0); EOSINOPHIL 3.1 % (0-4.5); MCH 31.6 pg (25.7-33.7); MCHC 34.3 g/dl (32.0-35.9); MEAN CELL VOLUME 92.1 fl (80-96); MEAN PLT VOLUME 8.9 fl (7.5-11.1); NEUTROPHILS 71.9 % (42.8-82.8); PLATELET COUNT 238 K/MM3 (134-434); RDW 12.5 % (11.9-15.9); WHITE BLOOD COUNT 10.3 K/mm3 (4.0-10.0)
[2017-07-24 13:03] LABS: ANION GAP 6 (8-16); CALCIUM 8.5 mg/dL (8.5-10.1); CO2 30 mmol/L (21-32); CREATININE 1.1 mg/dL (0.7-1.3); GLUCOSE,RANDOM 130 mg/dL (74-106); MAGNESIUM 1.9 mg/dL (1.8-2.4); PHOSPHOROUS 2.7 mg/dL (2.5-4.9)
--- NOTE | 2017-07-24 13:50 | PN ---
Progress Note (short form) - Note Progress Note: surgery pt seen and examined. flatus and bm. some blood in stool afebrile abd- soft, nt, less distension, u/o 2300 Laboratory Tests 07/24/17 07/24/17 10:30 12:20 WBC 10.3 H Sodium 135 L A/P 1) Pod#3- cont npo except ice chips, cont ivf, cont thomson, cont solitario 2) prophylaxis- lovenox, protonix, oob, spirometer 3) discomfort- morphine, oxycodone 4) diverticulitis- follow path 5) wbc wnl 6) hyponatremia- will change to ns
[2017-07-24] MEDS ORDERED: oxyCODONE HCL 5 MG TABLET ONE (14:19)
--- NOTE | 2017-07-24 16:56 | PATH ---
Surgical Pathology Report Patient Name: MAXX DELA CRUZ Med. Rec. #: [id number] /Age/Gender: 1970 (Age: 46) / M Account: [id number] Location: [facility] MED/SURG Taken: 07/21/2017 Received: 07/21/2017 Reported: 07/24/2017 Physicians: Phi Walden Specimen(s) Received RECTO SIGMOID COLON Clinical History Diverticulitis large intestine, left upper quadrant pain Final Diagnosis RECTOSIGMOID COLON, LAPAROSCOPIC LOW ANTERIOR RESECTION: PORTION OF COLON WITH ACUTE DIVERTICULITIS AND ASSOCIATED PERFORATION IN A BACKGROUND OF DIVERTICULOSIS. ACUTE SEROSITIS AND FOCAL ADHESIONS. SURGICAL MARGINS ARE VIABLE. Electronically Signed Brittney Madrigal M.D. Gross Description Received in formalin labelled "rectosigmoid colon stitch staples distal" is a 14 cm in length by up to 5 cm in diameter segment of colon with a suture marking the distal end. The specimen is sutured at both ends. An area of perforation is present at the serosal aspect, 0.5 cm from the proximal end. The serosa has focal adhesions. Examination of the mucosa reveals apparent diverticula formation in the area of perforation. No additional mucosal masses or lesions are identified. No enlarged mesenteric lymph nodes are identified. Trigonometry Teacher sections are submitted as follows: 1-proximal margin, 2-distal margin, 3 and 4-area of perforation 5-additional asset protection representative section of colon. [facility]/07/21/2017 [facility]/07/21/2017
[2017-07-24] MEDS: POTASSIUM CHLORIDE 10 MEQ in DEXTROSE 5%-NORMAL SALINE 1,000 ML IVPB SCH (17:45)
[2017-07-24] MEDS ORDERED: ACETAMINOPHEN 325 MG TABLET (FP) PO PRN (17:49)
[2017-07-25] MEDS: LEVOTHYROXINE NA 50 MCG TABLET (FP) PO SCH (06:10)
[2017-07-25] MEDS: POTASSIUM CHLORIDE 10 MEQ in DEXTROSE 5%-NORMAL SALINE 1,000 ML IVPB SCH (06:11)
[2017-07-25 08:52] LABS: BASOPHIL 0.8 % (0-2.0); MCH 31.3 pg (25.7-33.7); MCHC 34.5 g/dl (32.0-35.9); MEAN CELL VOLUME 90.5 fl (80-96); MEAN PLT VOLUME 8.4 fl (7.5-11.1); NEUTROPHILS 61.1 % (42.8-82.8); PLATELET COUNT 284 K/MM3 (134-434); RDW 12.8 % (11.9-15.9); WHITE BLOOD COUNT 7.5 K/mm3 (4.0-10.0)
--- NOTE | 2017-07-25 09:16 | HP ---
DATE OF DICTATION: 05/30/2017 REASON FOR ADMISSION: History of complicated diverticulitis. BRIEF HISTORY: This is a 46-year-old gentleman whose history dates back to approximately 2010, when he had two bouts of acute diverticulitis, each documented on CT and treated with p.o. antibiotics. Patient resolved fairly quickly with that treatment. In 2012, he had a repeat attack that was managed with p.o. antibiotics as well and documented on CT scan. Patient had seen me at that time and given the paucity of finding on exam as well patients quick recovery, we have discussed the pros and cons of elective operation at that time versus medical management, and we felt it best that this gentleman be managed medically. Now, in 2016, in March, the patient had an acute attack of left-sided pain consistent with acute diverticulitis documented on CT scan. Patient was placed on Flagyl and Levaquin again. It took nearly the entire course of treatment for him to start feeling better. He is now better without fever or acute abdominal pain. However, he has chronic discomfort in the left side of his abdomen. He has had no fever, chills, or sweats, and appetite has returned to normal. He has also undergone a full endoscopy and colonoscopy in June of 2016. The colonoscopy was unremarkable except for diverticular disease. The colonoscopy was performed by Dr. Pryor. PAST MEDICAL HISTORY: Patient has a history of hypothyroidism, H. pylori gastritis, GERD, plantar fasciitis, carpal tunnel syndrome, C7 radiculopathy. PAST SURGICAL HISTORY: In 1981, patient had a Davis anel inserted for spondylothiasis by Dr. Mccarty. Following that operation, he had an abdominal spinal fusion where a portion of his iliac crest was removed and placed between L4-L5 and S1. This was done through an abdominal approach. Then, he had the Davis rods removed in 1982 and had undergone a spinal fusion in 2008. 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 He does not smoke. He drinks socially. MEDICATIONS: Omeprazole, losartan, Synthroid, and vitamins. ALLERGIES: None. PHYSICAL EXAMINATION: Lungs: Clear. Heart: Regular rhythm. Abdomen: Soft, mildly obese, nondistended. There is some left-sided tenderness with some very mild guarding to moderate palpation. No rebound. Rectal: Examination deferred. Patient had colonoscopy a year ago. IMPRESSION/PLAN: Recurrent diverticulitis: This is a 46-year-old gentleman with four documented bouts of recurrent diverticulitis. The most recent bout was in March of 2017. This was the worst bout to date. Patient took almost a week to start feeling better with oral antibiotics. We have discussed the pros and cons of surgery at this time, and the patient has opted to proceed with an elective colon resection in hopes of avoiding future diverticular complications. Due to the extensive surgical history of this gentleman with his back and his anterior approached spinal fusion, he is at more risk to develop surgical scarring intraabdominally that may preclude a laparoscopic approach, and therefore, he has a higher risk of opening. Due to the scarring and previous surgeries had and diverticular disease, he is more likely to have possibility of injury to the ureters and surrounding structures. This has all been conveyed to this gentleman and his at length and in great detail. They understand the risks of surgery and still want to proceed with an elective colon resection. Patient will be scheduled for a laparoscopic low anterior resection, possible ostomy, and possible conversion to an open procedure. Prior to surgery, the patient will undergo a repeat CT scan to ensure that his most recent event is completely resolved, and that there are no radiographic findings of inflammatory change (patient has still tenderness on the left side). Assuming the CT is negative, patient will be scheduled for surgery. 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 Saeid SHARPE [id number] cc: Dr. Kaufman, Dr. Pryor, Dr. Graham.
[2017-07-25 09:20] LABS: ANION GAP 8 (8-16); CALCIUM 8.6 mg/dL (8.5-10.1); CO2 29 mmol/L (21-32); GLUCOSE,RANDOM 94 mg/dL (74-106); MAGNESIUM 2.2 mg/dL (1.8-2.4); PHOSPHOROUS 3.7 mg/dL (2.5-4.9)
[2017-07-25] MEDS: oxyCODONE HCL 5 MG TABLET PO PRN (11:30)
[2017-07-25] MEDS: LOSARTAN 50MG/HCTZ 12.5MG 1 TAB (FP) PO SCH (11:30)
[2017-07-25] MEDS: PANTOPRAZOLE SODIUM 40 MG VIAL IVPUSH SCH (11:31)
[2017-07-25] MEDS: ACETAMINOPHEN 325 MG TABLET (FP) PO PRN (11:31)
[2017-07-25] MEDS: ENOXAPARIN NA (PORCINE) 40 MG/0.4 ML DISP.SYRIN SQ SCH (11:31)
--- NOTE | 2017-07-25 12:45 | PN ---
Progress Note (short form) - Note Progress Note: surgery pt seen and examined. still bm and flatus. hungry. no discomfort. afebrile abd- soft, nt, less distension Laboratory Tests 07/25/17 07:45 WBC 7.5 A/P 1) Pod#4- full liquids, stop ivf, remove thomson in am, cont solitario 2) prophylaxis- lovenox, protonix, oob, spirometer 3) discomfort- morphine, oxycodone 4) diverticulitis- path confirms 5) wbc wnl 6) hyponatremia- resolved
[2017-07-25] MEDS ORDERED: NYSTATIN POWDER 100,000 UNITS/GM - 15 GM TOPICAL POWDER TP PRN (17:46)
[2017-07-26] MEDS: oxyCODONE HCL 5 MG TABLET PO PRN ×2 (03:42→13:08)
[2017-07-26] MEDS: ACETAMINOPHEN 325 MG TABLET (FP) PO PRN ×2 (03:45→11:59)
[2017-07-26 05:36] VITALS: TEMP 98.1
[2017-07-26] MEDS: LEVOTHYROXINE NA 50 MCG TABLET (FP) PO SCH (06:09)
[2017-07-26] MEDS ORDERED: PANTOPRAZOLE 40 MG TABLET (FP) PO SCH ×2 (10:30→11:00)
[2017-07-26] MEDS: ENOXAPARIN NA (PORCINE) 40 MG/0.4 ML DISP.SYRIN SQ SCH (10:38)
[2017-07-26] MEDS: PANTOPRAZOLE SODIUM 40 MG VIAL IVPUSH SCH (10:38)
[2017-07-26] MEDS: LOSARTAN 50MG/HCTZ 12.5MG 1 TAB (FP) PO SCH (10:38)
[2017-07-26 11:31] VITALS: BP 141/73; PULSE 71
[2017-07-26] MEDS ORDERED: oxyCODONE HCL 5 MG TABLET ONE (13:07)
--- NOTE | 2017-07-26 14:33 | DS ---
DATE OF ADMISSION: 07/20/2017 DATE OF DISCHARGE: 07/26/2017 ADMITTING DIAGNOSIS: Complicated diverticulitis. DISCHARGE DIAGNOSIS: Complicated diverticulitis. BRIEF HISTORY: This is a 46-year-old male who presented to [facility] for surgical management of complicated diverticulitis. He was admitted on July 20, underwent IV hydration and bowel preparation. On July 21, he underwent a laparoscopic low anterior resection. Please reference Dr. Phi Walden's operative report for further details. His postoperative course was uneventful. He is being discharged home today, July 26, tolerating liquid diet. He is voiding, he is passing gas, and he is having bowel movements. He will go home with a new prescription for Percocet, which he will take as needed for pain. He will resume his usual home medications of losartan, hydrochlorothiazide, and Synthroid. He will follow with Dr. Walden in 1 to 2 weeks' time to be evaluated for Jerad-Lino drain and staple removal. At the time of his discharge, his pathology is back and confirms diverticulitis. DO HUMBERTO AMBRIZ/[id number]
== END 2017-07-26 15:18 | disposition home or self-care (01) | DRG 330 ==
LOC: J8W 07-20 07:58
PROVIDERS: ADMIT Surgery; ATTEND Surgery
PROC: 0DTN4ZZ Resection of Sigmoid Colon, Percutaneous Endoscopic Approach (ICD-10-PCS; 2017-07-21)
PROC: 0DNW4ZZ Release Peritoneum, Percutaneous Endoscopic Approach (ICD-10-PCS; 2017-07-21)
PROC: 3E1M38Z Irrigation of Peritoneal Cavity using Irrigating Substance, Percutaneous Approach (ICD-10-PCS; 2017-07-21)
PROC: 0DJD8ZZ Inspection of Lower Intestinal Tract, Via Natural or Artificial Opening Endoscopic (ICD-10-PCS; 2017-07-21)
PROC: 0DTP4ZZ Resection of Rectum, Percutaneous Endoscopic Approach (ICD-10-PCS; principal; 2017-07-21 08:00)
DX: K57.20 Diverticulitis of large intestine with perforation and abscess without bleeding (principal); E87.1 Hypo-osmolality and hyponatremia; K66.0 Peritoneal adhesions (postprocedural) (postinfection)
CPT/HCPCS: 36415; 80048; 83735; 84100; 85025; 85027; 86850; 86900; 86901; 88307-TC; 94010; 94760

== ENCOUNTER 2017-11-01 11:35 | Emergency (ER) | payer BC, OTHER ==
--- NOTE | 2017-11-01 12:02 | PDOC ---
History of Present Illness - General Chief Complaint: Cold Symptoms Stated Complaint: COUGH Time Seen by Provider: 11/01/17 11:39 History Source: Patient (Patient walked in complainig of congestion, cold symptoms which were temporarily improved after a short course of Prednisone, prescribed by his ENT MD, Dr Cordero, with reoccurence for the last day or so) Exam Limitations: No Limitations - History of Present Illness Timing/Duration: changing over time, intermittent Severity: mild, moderate Modifying Factors: worse with: cold therapy, eating, immobilization, medication , movement, rest, other Associated Symptoms: reports: cough, headaches Past History - Travel Traveled outside of the country in the last 30 days: No Close contact w/someone who was outside of country & ill: No - Past Medical History Allergies/Adverse Reactions: Allergies Allergy/AdvReac Type Severity Reaction Status Date / Time No Known Allergies Allergy Verified 11/01/17 11:36 Home Medications: Ambulatory Orders Levothyroxine [Synthroid -] 50 mcg PO DAILY 07/31/15 Losartan/Hydrochlorothiazide [Losartan-Hctz 50-12.5 mg Tab] 1 each PO DAILY Cetirizine HCl/Pseudoephedrine [Zyrtec-D Tablet] 1 each PO BID #20 tab.er.12h Fluticasone Prop 0.05% Nasal [Flonase -] 1 spray NS BID #1 bot 11/01/17 Omeprazole 20 mg PO DAILY 11/01/17 Anemia: No GI Disorders: Yes (DIVERTICULITIS) HTN: Yes Psychiatric Problems: No Thyroid Disease: Yes (HYPO.) Comment:: decreased hearing under ENT MD care and follow up 11/03/17 13:51 - Surgical History Abdominal Surgery: Yes (HERNIA) Neurologic Surgery: No (laminectomy with fusion x3 1981,1982,2009) Orthopedic Surgery: Yes (spinal fusion 2x 82 1x83 [id number]) - Immunization History Td Vaccination: (05/16/06) Immunization Up to Date: Yes - Suicide/Smoking/Psychosocial Hx Smoking Status: No Smoking History: Never smoked Have you smoked in the past 12 months: No Number of Cigarettes Smoked Daily: 0 Hx Alcohol Use: No Drug/Substance Use Hx: No Substance Use Type: None Hx Substance Use Treatment: No Review of Systems - Review of Systems Able to Perform ROS?: Yes Is the patient limited Citizen [place] proficient: Yes Constitutional: Yes: Symptoms Reported, See HPI HEENTM: Yes: See HPI Respiratory: Yes: Cough Cardiac (ROS): No: Symptoms Reported, See HPI, Chest Pain, Edema, Irregular Heart Rate, Lightheadedness, Palpitations, Syncope, Chest Tightness, Other ABD/GI: No: Symptoms Reported, See HPI, Abdominal Distended, Abd. Pain w/ defecation, Blood Streaked Bowels, Constipated, Diarrhea, Difficulty Swallowing , Nausea, Poor Appetite, Poor Fluid Intake, Rectal Bleeding, Vomiting, Indigestion, Abdominal cramping, Tarry Stools, Other Musculoskeletal: Yes: See HPI Integumentary: No: Symptoms Reported, See HPI, Bruising, Change in Color, Change in Hair/Nails, Dryness, Erythema, Flushing, Lesions, Lumps, Pallor, Pruritus, Rash, Sweating, Other Neurological: No: Symptoms reported, See HPI, Headache, Numbness, Paresthesia, Pre-Existing Deficit, Seizure, Tingling, Tremors, Weakness, Unsteady Gait, Ataxia, Dizziness, Other All Other Systems: Reviewed and Negative *Physical Exam - Physical Exam General Appearance: Yes: Nourished, Appropriately Dressed, Mild Distress HEENT: positive: MAGGIE, Nasal Congestion, Sinus Tenderness Neck: positive: Trachea midline, Supple Respiratory/Chest: positive: Lungs Clear, Labored Respiration Cardiovascular: positive: Regular Rate, S1, S2 Gastrointestinal/Abdominal: negative: Tender Lymphatic: positive: Adenopathy Musculoskeletal: positive: Normal Inspection Integumentary: positive: Normal Color, Dry, Warm Neurologic: positive: Fully Oriented, Alert, Normal Mood/Affect *DC/Admit/Observation/Transfer Diagnosis at time of Disposition: Upper respiratory infection, viral - Discharge Dispostion Disposition: HOME Condition at time of disposition: Stable Admit: No - Prescriptions Prescriptions: Cetirizine HCl/Pseudoephedrine [Zyrtec-D Tablet] 1 each PO BID #20 tab.er.12h Fluticasone Prop 0.05% Nasal [Flonase -] 1 spray NS BID #1 bot - Referrals - Patient Instructions Printed Discharge Instructions: How to Avoid a Cold or Flu, DI for Viral Upper Respiratory Infection -- Adult - Post Discharge Activity Forms/Work/School Notes: Back to Work
[2017-11-01 12:16] VITALS: BP 113/82; PULSE 90; TEMP 98.5; BMI 27.1
== END 2017-11-01 12:56 | disposition home or self-care (01) ==
LOC: FER 11:35
DX: J06.9 Acute upper respiratory infection, unspecified (principal); E03.9 Hypothyroidism, unspecified; I10 Essential (primary) hypertension
CPT/HCPCS: 99281-25

== ENCOUNTER 2018-08-20 14:01 | Emergency (ER) | payer OTHER, BC ==
[2018-08-20 14:12] VITALS: BP 138/98; PULSE 84; TEMP 97.7; BMI 29.8
[2018-08-20] MEDS ORDERED: BACITRACIN 15 GM TUBE TOPICAL OINTMENT ONE (14:39)
--- NOTE | 2018-08-20 14:53 | PDOC ---
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 patient report stiffness to lower back with only mild pain. patient also report pain to left knee from twisting knee and pain to left shoulder from grabbing the prisoner. Denies numbness or tingling sensation. Denies problem with ambulation or problem with movement 08/20/18 15:07 Timing/Duration: 1-3 hours Past History - Past Medical History Allergies/Adverse Reactions: Allergies Allergy/AdvReac Type Severity Reaction Status Date / Time No Known Allergies Allergy Verified 08/20/18 14:07 Home Medications: Ambulatory Orders Levothyroxine [Synthroid -] 50 mcg PO DAILY 07/31/15 Losartan/Hydrochlorothiazide [Losartan-Hctz 50-12.5 mg Tab] 1 each PO DAILY C/Sourcherry/Celery/Grape Seed [Tart Guillaume Capsule] 1 each PO DAILY 05/03/18 Multivitamin with Iron [Multivitamins with Iron] 1 each PO DAILY 05/03/18 Ranitidine [Zantac -] 150 mg PO BID 05/04/18 Turmeric/Turmeric Root Extract [Turmeric 500 mg Capsule] 1 each PO DAILY Cyclobenzaprine HCl [Flexeril -] 10 mg PO TID PRN #21 tablet 08/20/18 Meloxicam 15 mg PO DAILY #20 tablet 08/20/18 Methocarbamol [Robaxin -] 500 mg PO TID PRN #21 tablet 08/20/18 Anemia: No COPD: No GI Disorders: Yes (DIVERTICULITIS x4,h.pylori gastritis,gerd) HTN: Yes Psychiatric Problems: No Thyroid Disease: Yes (hypothyroidism) - Surgical History Abdominal Surgery: Yes (RIGHT INGUINAL HERNIA) Neurologic Surgery: No (laminectomy with fusion x3 1981,1982,2008) Orthopedic Surgery: Yes (lumbar spinal fusion 2x 82 1x83 [id number]) - Immunization History Td Vaccination: (05/16/06) Immunization Up to Date: Yes - Suicide/Smoking/Psychosocial Hx Smoking Status: No Smoking History: Never smoked Have you smoked in the past 12 months: No Number of Cigarettes Smoked Daily: 0 Hx Alcohol Use: No Drug/Substance Use Hx: No Substance Use Type: None Hx Substance Use Treatment: No Review of Systems - Review of Systems Able to Perform ROS?: Yes Is the patient limited [place] proficient: No Constitutional: No: Weakness HEENTM: Yes: Recent change in vision. No: Symptoms Reported, See HPI, Eye Pain , Blurred Vision, Tearing, Double Vision, Cataracts, Ear Pain, Ocular Prothesis , Ear Discharge, Nose Pain, Nose Congestion, Tinnitus, Nose Bleeding, Hearing Loss, Throat Pain, Throat Swelling, Mouth Pain, Dental Problems, Difficulty Swallowing, Mouth Swelling, Other Respiratory: No: Symptoms reported Cardiac (ROS): No: Symptoms Reported, See HPI, Chest Pain, Edema, Irregular Heart Rate, Lightheadedness, Palpitations, Syncope, Chest Tightness, Other ABD/GI: No: Symptoms Reported, See HPI, Abdominal Distended, Abd. Pain w/ defecation, Blood Streaked Bowels, Constipated, Diarrhea, Difficulty Swallowing , Nausea, Poor Appetite, Poor Fluid Intake, Rectal Bleeding, Vomiting, Indigestion, Abdominal cramping, Tarry Stools, Other Musculoskeletal: Yes: See HPI, Back Pain (mild pain with stiffness), Muscle Pain (left shoulder and anterior knee). No: Joint Swelling, Muscle Weakness, Joint Stiffness Integumentary: No: Symptoms Reported, See HPI, Bruising, Change in Color, Change in Hair/Nails, Dryness, Erythema, Flushing, Lesions, Lumps, Pallor, Pruritus, Rash, Sweating, Other Neurological: No: Symptoms reported, See HPI, Headache, Numbness, Paresthesia, Pre-Existing Deficit, Seizure, Tingling, Tremors, Weakness, Unsteady Gait, Ataxia, Dizziness, Other All Other Systems: Reviewed and Negative *Physical Exam - Vital Signs Last Vital Signs Temp Pulse Resp BP Pulse Ox 97.7 F 84 16 138/98 94 L 08/20/18 14:07 08/20/18 14:07 08/20/18 14:07 08/20/18 14:07 08/20/18 14:07 - Physical Exam Comments: 08/20/18 16:50 GENERAL: Well developed, well nourished. Awake and alert. No acute distress. CARDIOVASCULAR: Regular rate and rhythm. No murmurs, rubs, or gallops. PULMONARY: No evidence of respiratory distress. Lungs clear to auscultation bilaterally. No wheezing, rales or rhonchi. ABDOMINAL: Soft. Non-tender. Non-distended. No rebound or guarding. No organomegaly. Normoactive bowel sounds MUSCULOSKELETAL : mild tenderness over anterior left patella. no swelling to left knee. negative anterior-posterior drawer test of left knee. mild tenderness over AC Joint of left shoulder. no pain to lower back EXTREMITIES: No cyanosis. No clubbing. No edema. No calf tenderness. SKIN: Warm and dry. Normal capillary refill. No rashes. No jaundice. NEUROLOGICAL: Alert, awake, appropriate. No motor deficits in the lower extremities. Gait is normal without ataxia. PSYCHIATRIC: Cooperative. Good eye contact. Appropriate mood and affect. General Appearance: Yes: Nourished, Appropriately Dressed. 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 patient report stiffness to lower back with only mild pain. exam significant for mild anterior patella pain. no pain to lumbar spine. no pain to shoulder. FROM of extremities and back. symptoms likely muscle strain and will be discharge home on NSAIDS and muscle relaxer with orthopedics follow- up as needed *DC/Admit/Observation/Transfer Diagnosis at time of Disposition: Elbow pain, left, Back spasm Low back pain Qualifiers: Chronicity: acute Back pain laterality: bilateral Sciatica presence: without sciatica Qualified Code(s): M54.5 - Low back pain Left knee sprain Qualifiers: Encounter type: initial encounter Involved ligament of knee: unspecified ligament Qualified Code(s): S83.92XA - Sprain of unspecified site of left knee, initial encounter - Discharge Dispostion Disposition: HOME Condition at time of disposition: Stable Decision to Admit order: No - Prescriptions Prescriptions: Cyclobenzaprine HCl [Flexeril -] 10 mg PO TID PRN #21 tablet PRN Reason: Back Pain Meloxicam 15 mg PO DAILY #20 tablet Methocarbamol [Robaxin -] 500 mg PO TID PRN #21 tablet PRN Reason: pain - Referrals Referrals: Oli Graham MD [Primary Care Provider] - - Patient Instructions Printed Discharge Instructions: DI for Back Spasm Additional Instructions: take medications as prescribed. apply heat 2-3 times/ day for 5-10mins as needed for pain - Post Discharge Activity Forms/Work/School Notes: Back to Work
== END 2018-08-20 15:27 | disposition home or self-care (01) ==
LOC: JERFT 14:01
DX: S83.8X2A Sprain of other specified parts of left knee, initial encounter (principal); M54.5 Low back pain; M25.522 Pain in left elbow; M62.830 Muscle spasm of back; Y35.811A Legal intervention involving manhandling, law enforcement official injured, initial encounter; Y93.89 Activity, other specified; Y92.89 Other specified places as the place of occurrence of the external cause; Y99.0 Civilian activity done for income or pay
CPT/HCPCS: 99281-25

== ENCOUNTER 2018-12-10 13:43 | Emergency (ER) | payer OTHER, BC ==
[2018-12-10 14:02] VITALS: BP 134/86; PULSE 63; BMI 31.1
--- NOTE | 2018-12-10 14:02 | PDOC ---
Rapid Medical Evaluation Time Seen by Provider: 12/10/18 13:56 Medical Evaluation: Allergies Allergy/AdvReac Type Severity Reaction Status Date / Time No Known Allergies Allergy Verified 08/20/18 14:07 12/10/18 13:57 I have performed a brief in-person evaluation of this patient. The patient presents with a chief compliant of s/p tripped and fall onto left side. Complaining of soreness in neck, left shoulder , elbow and left knee. Denies dizziness or loc Pertinent physical exam findings NAD + tenderness to para cervical spine, +FROM of shoulder with soreness + small swollen area to left knee I have ordered the following xray ordered The patient will proceed to the ED for further evaluation. Discharge Disposition - Diagnosis Musculoskeletal arm pain - Referrals - Patient Instructions - Post Discharge Activity
[2018-12-10] MEDS ORDERED: CYCLOBENZAPRINE HCL 10 MG TABLET (FP) PO ONE (15:04)
[2018-12-10] MEDS ORDERED: IBUPROFEN 400 MG TABLET (FP) PO ONE ×2 (15:04→15:07)
--- NOTE | 2018-12-10 15:04 | PDOC ---
History of Present Illness - General Chief Complaint: Injury Stated Complaint: FALL / NECK ARM PAIN Time Seen by Provider: 12/10/18 13:56 History Source: Patient Exam Limitations: No Limitations - History of Present Illness Initial Comments: 12/10/18 19:52 The patient is a 40-year-old male with past medical history of multiple spinal fusions who presents to the ER today after a mechanical trip and fall while at work. 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 He states that he landed hard on his left side including his left knee his left elbow. He states he also felt his neck with forward. He states that now he's got midline tenderness and numbness to the back of his neck. Denies loss of consciousness, numbness and tingling to the extremities and weakness to the extremities. Past History - Travel Traveled outside of the country in the last 30 days: No Close contact w/someone who was outside of country & ill: No - Past Medical History Allergies/Adverse Reactions: Allergies Allergy/AdvReac Type Severity Reaction Status Date / Time No Known Allergies Allergy Verified 12/10/18 14:23 Home Medications: Ambulatory Orders Levothyroxine [Synthroid -] 50 mcg PO DAILY 07/31/15 Losartan/Hydrochlorothiazide [Losartan-Hctz 50-12.5 mg Tab] 1 each PO DAILY C/Sourcherry/Celery/Grape Seed [Tart Guillaume Capsule] 1 each PO DAILY 05/03/18 Multivitamin with Iron [Multivitamins with Iron] 1 each PO DAILY 05/03/18 Ranitidine [Zantac -] 150 mg PO BID 05/04/18 Turmeric/Turmeric Root Extract [Turmeric 500 mg Capsule] 1 each PO DAILY Cyclobenzaprine HCl [Flexeril -] 10 mg PO TID PRN #21 tablet 08/20/18 Meloxicam 15 mg PO DAILY #20 tablet 08/20/18 Methocarbamol [Robaxin -] 500 mg PO TID PRN #21 tablet 08/20/18 Cyclobenzaprine HCl [Flexeril -] 10 mg PO HS #10 tablet 12/10/18 Ibuprofen 800 mg PO TID #30 tablet 12/10/18 Anemia: No COPD: No GI Disorders: Yes (DIVERTICULITIS x4,h.pylori gastritis,gerd) HTN: Yes Psychiatric Problems: No Thyroid Disease: Yes (hypothyroidism) - Surgical History Abdominal Surgery: Yes (RIGHT INGUINAL HERNIA) Neurologic Surgery: No (laminectomy with fusion x3 1981,1983,2009) Orthopedic Surgery: Yes (lumbar spinal fusion 2x 82 1x83 [id number]) - Immunization History Td Vaccination: (05/16/06) Immunization Up to Date: Yes - Suicide/Smoking/Psychosocial Hx Smoking Status: No Smoking History: Never smoked Have you smoked in the past 12 months: No Number of Cigarettes Smoked Daily: 0 Hx Alcohol Use: No Drug/Substance Use Hx: No Substance Use Type: None Hx Substance Use Treatment: No Review of Systems - Review of Systems Able to Perform ROS?: Yes Comments:: 12/10/18 19:53 CONSTITUTIONAL: Absent: fever, chills, diaphoresis, generalized weakness, malaise, loss of appetite HEENT: Absent: rhinorrhea, nasal congestion, throat pain, throat swelling, difficulty swallowing, mouth swelling, ear pain, eye pain, visual Changes CARDIOVASCULAR: Absent: chest pain, loss of consciousness, palpitations, irregular heart rate, peripheral edema RESPIRATORY: Absent: cough, shortness of breath, dyspnea with exertion, orthopnea, wheezing, stridor, hemoptysis GASTROINTESTINAL: Absent: abdominal pain, abdominal distension, nausea, vomiting, diarrhea, constipation, melena, hematochezia GENITOURINARY: Absent: dysuria, frequency, urgency, hesitancy, hematuria, flank pain, genital pain MUSCULOSKELETAL: Present: neck pain, L elbow, L knee pain. Absent: myalgia, SKIN: Absent: rash, itching, pallor HEMATOLOGIC/IMMUNOLOGIC: Absent: easy bleeding, easy bruising, lymphadenopathy, frequent infections ENDOCRINE: Absent: unexplained weight gain, unexplained weight loss, heat intolerance, cold intolerance NEUROLOGIC: Absent: headache, focal weakness or paresthesias, dizziness, unsteady gait, seizure, mental status changes, bladder or bowel incontinence PSYCHIATRIC: Absent: anxiety, depression, suicidal or homicidal ideation, hallucinations. Is the patient limited Serbian proficient: No *Physical Exam - Vital Signs Last Vital Signs Temp Pulse Resp BP Pulse Ox 63 16 134/86 96 12/10/18 13:58 12/10/18 13:58 12/10/18 13:58 12/10/18 13:58 - Physical Exam Comments: 12/10/18 19:53 GENERAL: Well developed, well nourished. Awake and alert. No acute distress. HEENT: Normocephalic, atraumatic. PERRLA, EOMI. No conjunctival pallor. Sclera are non- icteric. Moist mucous membranes. Oropharynx is clear. NECK: Supple. Full ROM. No JVD. Carotid pulses 2+ and symmetric, without bruits. No thyromegaly. No lymphadenopathy. CARDIOVASCULAR: Regular rate and rhythm. No murmurs, rubs, or gallops. Distal pulses are 2+ and symmetric. PULMONARY: No evidence of respiratory distress. Lungs clear to auscultation bilaterally. No wheezing, rales or rhonchi. ABDOMINAL: Soft. Non-tender. Non-distended. No rebound or guarding. No organomegaly. Normoactive bowel sounds. MUSCULOSKELETAL TTP of the cervical spine with associated numbeness. Swelling to the L lateral knee with associated TTP. (-) lachmans and mayda's testing. TTP of the L elbow without swelling. Normal range of motion at all joints. No CVA tenderness. EXTREMITIES: No cyanosis. No clubbing. No edema. No calf tenderness. SKIN: Warm and dry. Normal capillary refill. No rashes. No jaundice. NEUROLOGICAL: Alert, awake, appropriate. Cranial nerves 2-12 intact. No deficits to light touch and temperature in face, upper extremities and lower extremities. No motor deficits in the in face, upper extremities and lower extremities. Normoreflexic in the upper and lower extremities. Normal speech. Toes are down- going bilaterally. Gait is normal without ataxia. PSYCHIATRIC: Cooperative. Good eye contact. Appropriate mood and affect. Moderate Sedation - Procedure Monitoring Vital Signs: Procedure Monitoring Vital Signs Temperature Pulse Rate 63 12/10/18 13:58 Respiratory Rate 16 12/10/18 13:58 Blood Pressure 134/86 12/10/18 13:58 O2 Sat by Pulse Oximetry (%) 96 12/10/18 13:58 Medical Decision Making - Medical Decision Making 12/10/18 19:55 The patient is a 48-year-old male with past medical history of multiple spinal fusions who presents to the ER today after a mechanical trip and fall with neck pain, left elbow pain and left knee pain. On exam patient with midline tenderness of the cervical spine with associated numbness. CT neck ordered. No acute fracture or displacement of the vertebra at this time. Patient with decreased joint space between C6 and C7 which patient states he knew about. Left knee and left elbow x-rays are negative for fracture. Patient reports relief of symptoms with ibuprofen and Flexeril. Neck tenderness and numbness most likely due to a muscle spasm. Discharge home with symptomatic relief and orthospine follow-up. I discussed the physical exam findings, ancillary test results and final diagnoses with the patient. I answered all of the patient's questions. The patient was satisfied with the care received and felt comfortable with the discharge plan and treatment plan. The Patient agrees to follow up with the primary care physician/specialist within 24-72 hours. Return precautions were given. *DC/Admit/Observation/Transfer Diagnosis at time of Disposition: Elbow pain, left, Left knee sprain, Neck pain - Discharge Dispostion Disposition: HOME Condition at time of disposition: Stable Decision to Admit order: No - Prescriptions Prescriptions: Cyclobenzaprine HCl [Flexeril -] 10 mg PO HS #10 tablet Ibuprofen 800 mg PO TID #30 tablet - Referrals Referrals: Oli Graham MD [Primary Care Provider] - [place] MD, FAANS [Staff Physician] - Surendra Stein MD [Staff Physician] - - Patient Instructions Printed Discharge Instructions: DI for Neck Pain Additional Instructions: You have neck pain most likely due to a muscle spasm. Please take ibuprofen 800 mg 3 times a day not to exceed 3000 mg a day. You were also prescribed Flexeril. Please take this medication every 8 hours for the first day. Then take the medication before you go to bed. Do not drive after taking this medication as it may make you sleepy. You may use warm compresses on your back to help with her symptoms. Please follow-up with your primary care doctor. If your symptoms do not resolve in 3-5 days, follow-up with orthopedics. A referral has been provided for you. Return to the emergency department if you have worsening back pain, bladder or bowel incontinence, numbness and tingling in her legs, changes in the way you walk, or any new or worsening symptoms. - Post Discharge Activity Forms/Work/School Notes: Back to Work
[2018-12-10] MEDS ORDERED: CYCLOBENZAPRINE HCL 10 MG TABLET (FP) ONE (15:07)
== END 2018-12-10 18:22 | disposition home or self-care (01) ==
LOC: JERFT 13:43
DX: S83.8X2A Sprain of other specified parts of left knee, initial encounter (principal); W18.09XA Striking against other object with subsequent fall, initial encounter; Y93.89 Activity, other specified; Y92.414 Local residential or business street as the place of occurrence of the external cause; Y99.0 Civilian activity done for income or pay; I10 Essential (primary) hypertension; E03.9 Hypothyroidism, unspecified; Z87.19 Personal history of other diseases of the digestive system; Z98.1 Arthrodesis status
CPT/HCPCS: 72050-TC-FY; 72125-TC; 73030-TC-LT-FY; 73562-TC-LT-FY; 99281-25

== ENCOUNTER 2019-07-19 13:10 | Emergency (ER) | payer BC, OTHER ==
--- NOTE | 2019-07-19 13:18 | PDOC ---
Rapid Medical Evaluation Chief Complaint: Chest Pain Time Seen by Provider: 07/19/19 13:16 Medical Evaluation: Allergies Allergy/AdvReac Type Severity Reaction Status Date / Time No Known Allergies Allergy Verified 12/10/18 14:23 07/19/19 13:16 I have performed a brief in-person evaluation of this patient. The patient presents with a chief complaint of: L sided chest pressure and generalized malaise since 8:30-9am today I have ordered the following: EKG, CBC, CMP, cardiac enzymes, CXR The patient will proceed to the ED for further evaluation. Discharge Disposition - Diagnosis Chest pressure - Referrals - Patient Instructions - Post Discharge Activity
[2019-07-19 13:19] VITALS: BMI 30.5
[2019-07-19] MEDS ORDERED: ACETAMINOPHEN 1000 MG/100 ML VIAL (NON FORMULARY) IVPB ONE (13:44)
--- NOTE | 2019-07-19 13:44 | PDOC ---
History of Present Illness - General History Source: Patient Exam Limitations: Clinical Condition - History of Present Illness Initial Comments: 07/19/19 13:39 Patient with history of hypertension on losartan with hydrochlorothiazide and hypothyroidism on Synthroid presented with complaint of sudden onset of chest pressure upon with this morning which has been constant. Patient also reporting headache since this morning. Patient reports compliance with his blood pressure and Synthroid medication. Denies shortness of breath, palpitation, dizziness, nausea, vomiting, numbness or tingling sensation. Denies any other symptoms. Patient did not take anything for symptoms Is this a multiple visit Asthma Patient?: No <Jeet Hollins - Last Filed: 07/19/19 16:23> <Ferny Cheng - Last Filed: 07/19/19 16:31> - General Chief Complaint: Chest Pain Stated Complaint: CHEST PRESSURE Time Seen by Provider: 07/19/19 13:16 Past History - Past Medical History Anemia: No COPD: No GI Disorders: Yes (DIVERTICULITIS x4,h.pylori gastritis,gerd) HTN: Yes Hypercholesterolemia: Yes Psychiatric Problems: No Thyroid Disease: Yes (hypothyroidism) - Surgical History Abdominal Surgery: Yes (RIGHT INGUINAL HERNIA) Neurologic Surgery: No (laminectomy with fusion x3 1981,1982,2008) Orthopedic Surgery: Yes (lumbar spinal fusion 2x 82 1x83 [id number]) - Immunization History Td Vaccination: (05/16/06) Immunization Up to Date: Yes - Psycho Social/Smoking Cessation Hx Smoking Status: No Smoking History: Never smoked Have you smoked in the past 12 months: No Number of Cigarettes Smoked Daily: 0 Information on smoking cessation initiated: No Hx Alcohol Use: No Drug/Substance Use Hx: No Substance Use Type: None Hx Substance Use Treatment: No <Jeet Hollins - Last Filed: 07/19/19 16:23> <Ferny Cheng - Last Filed: 07/19/19 16:31> - Past Medical History Allergies/Adverse Reactions: Allergies Allergy/AdvReac Type Severity Reaction Status Date / Time No Known Allergies Allergy Verified 07/19/19 13:18 Home Medications: Ambulatory Orders Levothyroxine [Synthroid -] 50 mcg PO DAILY 07/31/15 Losartan/Hydrochlorothiazide [Losartan-Hctz 50-12.5 mg Tab] 1 each PO DAILY C/Sourcherry/Celery/Grape Seed [Tart Guillauem Capsule] 1 each PO DAILY 05/03/18 Multivitamin with Iron [Multivitamins with Iron] 1 each PO DAILY 05/03/18 Ranitidine [Zantac -] 150 mg PO BID 05/04/18 Turmeric/Turmeric Root Extract [Turmeric 500 mg Capsule] 1 each PO DAILY Cyclobenzaprine HCl [Flexeril -] 10 mg PO TID PRN #21 tablet 08/20/18 Meloxicam 15 mg PO DAILY #20 tablet 08/20/18 Methocarbamol [Robaxin -] 500 mg PO TID PRN #21 tablet 08/20/18 Cyclobenzaprine HCl [Flexeril -] 10 mg PO HS #10 tablet 12/10/18 Ibuprofen 800 mg PO TID #30 tablet 12/10/18 Review of Systems - Review of Systems Able to Perform ROS?: Yes Is the patient limited Citizen [place] proficient: No Constitutional: No: Chills, Diaphoresis, Fever, Weakness HEENTM: No: Symptoms Reported, See HPI, Eye Pain, Blurred Vision, Tearing, Recent change in vision, Double Vision, Cataracts, Ear Pain, Ocular Prothesis, Ear Discharge, Nose Pain, Nose Congestion, Tinnitus, Nose Bleeding, Hearing Loss , Throat Pain, Throat Swelling, Mouth Pain, Dental Problems, Difficulty Swallowing, Mouth Swelling, Other Respiratory: Yes: Symptoms reported, See HPI. No: Cough, Orthopnea, Shortness of Breath, SOB with Exertion, SOB at Rest, Stridor, Wheezing, Productive cough, Hemoptysis, Other Cardiac (ROS): Yes: Symptoms Reported, See HPI, Chest Pain (chest pressure). No : Edema, Irregular Heart Rate, Lightheadedness, Palpitations, Syncope, Chest Tightness, Other ABD/GI: No: Symptoms Reported, Nausea, Vomiting Neurological: Yes: Symptoms reported, See HPI, Headache. No: Numbness, Paresthesia, Seizure, Tingling, Ataxia, Dizziness All Other Systems: Reviewed and Negative <GunjanJeet Keller - Last Filed: 07/19/19 16:23> *Physical Exam - Vital Signs Last Vital Signs Temp Pulse Resp BP Pulse Ox 97.9 F 67 17 146/97 100 07/19/19 13:14 07/19/19 13:14 07/19/19 13:14 07/19/19 13:14 07/19/19 13:14 - Physical Exam Comments: 07/19/19 13:43 GENERAL: Well developed, well nourished. Awake and alert. No acute distress. HEENT: Normocephalic, atraumatic. PERRLA, EOMI. No conjunctival pallor. Sclera are non-icteric. Moist mucous membranes. Oropharynx is clear. NECK: Supple. Full ROM. CARDIOVASCULAR: Mild tenderness to palpation to midsternal. Regular rate and rhythm. No murmurs , rubs, or gallops. Distal pulses are 2+ and symmetric. PULMONARY: No evidence of respiratory distress. Lungs clear to auscultation bilaterally. No wheezing, rales or rhonchi. ABDOMINAL: Soft. Non-tender. Non-distended. No rebound or guarding. No organomegaly. Normoactive bowel sounds. MUSCULOSKELETAL Normal range of motion at all joints. Mild tenderness to palpation to midsternal. EXTREMITIES: No cyanosis. No clubbing. No edema. No calf tenderness. SKIN: Warm and dry. Normal capillary refill. . NEUROLOGICAL: Alert, awake, appropriate. Gait is normal without ataxia. PSYCHIATRIC: Cooperative. Good eye contact. Appropriate mood General Appearance: Yes: Nourished, Appropriately Dressed. No: Apparent Distress <Jeet Hollins - Last Filed: 07/19/19 16:23> - Vital Signs Last Vital Signs Temp Pulse Resp BP Pulse Ox 97.2 F L 62 17 141/104 H 97 07/19/19 16:00 07/19/19 16:00 07/19/19 13:14 07/19/19 16:00 07/19/19 16:00 <Ferny Cheng - Last Filed: 07/19/19 16:31> ED Treatment Course - LABORATORY CBC & Chemistry Diagram: 07/19/19 13:31 07/19/19 13:21 <Jeet Hollins - Last Filed: 07/19/19 16:23> - LABORATORY CBC & Chemistry Diagram: 07/19/19 13:31 07/19/19 13:21 - ADDITIONAL ORDERS Additional order review: Laboratory Results 07/19/19 07/19/19 13:21 13:21 Sodium 140 Potassium 4.0 Chloride 106 Carbon Dioxide 28 Anion Gap 7 L BUN 18.4 H Creatinine 1.2 Est GFR (CKD-EPI)AfAm 82.38 Est GFR (CKD-EPI)NonAf 71.08 Random Glucose 80 Calcium 8.9 Phosphorus 4.4 Magnesium 2.3 Total Bilirubin 0.4 AST 15 ALT 29 Alkaline Phosphatase 54 Creatine Kinase 91 Troponin I < 0.02 Total Protein 7.2 Albumin 4.2 Lipase 101 07/19/19 13:31 RBC 4.46 MCV 94.2 MCHC 33.5 RDW 12.8 MPV 8.2 Neutrophils % 60.0 Lymphocytes % 24.9 Monocytes % 10.9 H Eosinophils % 2.9 Basophils % 1.3 - Medications Given in the ED: ED Medications Discontinued Medications Generic Name Dose Route Start Last Admin Trade Name Freq PRN Reason Stop Dose Admin Acetaminophen 1,000 mg 07/19/19 13:44 07/19/19 14:24 Ofirmev Injection - IVPB 07/19/19 13:45 1,000 mg ONCE ONE Administration <Ferny Cheng - Last Filed: 07/19/19 16:31> Medical Decision Making - Medical Decision Making 07/19/19 13:40 Patient with history of hypertension on losartan with hydrochlorothiazide and hypothyroidism on Synthroid presented with complaint of sudden onset of chest pressure upon with this morning which has been constant. Patient also reporting headache since this morning. Patient reports compliance with his blood pressure and Synthroid medication. Denies shortness of breath, palpitation, dizziness, nausea, vomiting, numbness or tingling sensation. Denies any other symptoms. Patient did not take anything for symptoms Exam significant for reproducible tenderness to mid sternum otherwise unremarkable exam. Patient no acute distress. EKG done in triage shows normal sinus rhythm. Symptoms likely costochondritis versus less likely cardiogenic pain. CBC, CMP and cardiac profile labs ordered. Chest x-ray ordered to rule out acute chest pathology. Tylenol 1 g IV ordered for headache and chest pain. Treat based on imaging lab results 07/19/19 14:59 CBC, CMP and cardiac profile unremarkable. Patient still asymptomatic now. Report improvement in pain after Tylenol. Will repeat cardiac profile labs 3 hours from first lab for confirmatory results 07/19/19 16:23 Patient still asymptomatic. Repeat cardiac profile lab ordered. Patient signed out to oncoming team JACKIE Villafuerte for follow-up care <Jeet Hollins - Last Filed: 07/19/19 16:23> - Medical Decision Making 07/19/19 16:31 I reviewed the case of the mid-level practitioner and was available for consultation while in the emergency department <Ferny Cheng - Last Filed: 07/19/19 16:31> Discharge - Discharge Information Problems reviewed: Yes <Jeet Hollins - Last Filed: 07/19/19 16:23> <Ferny Cheng - Last Filed: 07/19/19 16:31> - Discharge Information Clinical Impression/Diagnosis: Chest pressure Condition: Stable - Follow up/Referral Referrals: Oli Graham MD [Primary Care Provider] -
[2019-07-19 13:51] LABS: BASO % 1.3 % (0-2.0); EOS % 2.9 % (0-4.5); HEMOGLOBIN 14.1 GM/dL (11.7-16.9); LYMPH % 24.9 % (8-40); MCH 31.5 pg (25.7-33.7); MCHC 33.5 g/dl (32.0-35.9); MEAN CELL VOLUME 94.2 fl (80-96); MEAN PLT VOLUME 8.2 fl (7.5-11.1); MONO % 10.9 % (3.8-10.2); PLATELET COUNT 273 K/MM3 (134-434); RBC 4.46 M/mm3 (4.00-5.60); RDW 12.8 % (11.9-15.9); WHITE BLOOD COUNT 5.6 K/mm3 (4.0-10.0)
[2019-07-19] MEDS ORDERED: ACETAMINOPHEN INJECTION 100 ML IVPB ONE (13:57)
[2019-07-19 14:16] LABS: ALBUMIN 4.2 g/dl (3.4-5.0); BILIRUBIN,TOTAL 0.4 mg/dL (0.2-1); BLOOD UREA NITROGEN 18.4 mg/dL (7-18); CALCIUM 8.9 mg/dL (8.5-10.1); CREATININE 1.2 mg/dL (0.55-1.3); MAGNESIUM 2.3 mg/dL (1.8-2.4); PHOSPHOROUS 4.4 mg/dL (2.5-4.9); TOT PROT 7.2 g/dl (6.4-8.2)
[2019-07-19 16:01] VITALS: TEMP 97.2
--- NOTE | 2019-07-19 16:37 | PDOC ---
*Physical Exam - Vital Signs Last Vital Signs Temp Pulse Resp BP Pulse Ox 97.2 F L 62 17 141/104 H 97 07/19/19 16:00 07/19/19 16:00 07/19/19 13:14 07/19/19 16:00 07/19/19 16:00 - Physical Exam Comments: 07/19/19 16:35 Sign-out received from outgoing ER provider Gunjan. Pt interviewed and examined. Ancillary studies reviewed. Awaiting repeat trop. 07/19/19 17:41 Repeat trop negative. Given reproducible chest wall tenderness, unlikely of cardiac origin. Will dc home. NSAIDS for pain relief. Advised patient to take medication as prescribed and follow up with cardiology if symptoms persist. Advised patient of signs and symptoms for return to ED. Patient verbalized understanding and agrees to plan. ED Treatment Course - LABORATORY CBC & Chemistry Diagram: 07/19/19 13:31 07/19/19 13:21 - ADDITIONAL ORDERS Additional order review: Laboratory Results 07/19/19 07/19/19 13:21 13:21 Sodium 140 Potassium 4.0 Chloride 106 Carbon Dioxide 28 Anion Gap 7 L BUN 18.4 H Creatinine 1.2 Est GFR (CKD-EPI)AfAm 82.38 Est GFR (CKD-EPI)NonAf 71.08 Random Glucose 80 Calcium 8.9 Phosphorus 4.4 Magnesium 2.3 Total Bilirubin 0.4 AST 15 ALT 29 Alkaline Phosphatase 54 Creatine Kinase 91 Troponin I < 0.02 Total Protein 7.2 Albumin 4.2 Lipase 101 07/19/19 13:31 RBC 4.46 MCV 94.2 MCHC 33.5 RDW 12.8 MPV 8.2 Neutrophils % 60.0 Lymphocytes % 24.9 Monocytes % 10.9 H Eosinophils % 2.9 Basophils % 1.3 - Medications Given in the ED: ED Medications Discontinued Medications Generic Name Dose Route Start Last Admin Trade Name Freq PRN Reason Stop Dose Admin Acetaminophen 1,000 mg 07/19/19 13:44 07/19/19 14:24 Ofirmev Injection - IVPB 07/19/19 13:45 1,000 mg ONCE ONE Administration Discharge - Discharge Information Problems reviewed: Yes Clinical Impression/Diagnosis: Chest wall discomfort Condition: Stable Disposition: HOME - Admission No - Additional Discharge Information Prescriptions: Ibuprofen [Ibu] 600 mg PO TID #14 tablet - Follow up/Referral Referrals: Oli Graham MD [Primary Care Provider] - Ramesh Lowe MD [Staff Physician] - - Patient Discharge Instructions Patient Printed Discharge Instructions: DI for Costochondritis - Post Discharge Activity
[2019-07-19 17:52] VITALS: BP 140/103; PULSE 65
--- NOTE | 2019-07-20 14:48 | EKG ---
Test Reason : Blood Pressure : / mmHG Vent. Rate : 065 BPM Atrial Rate : 065 BPM P-R Int : 152 ms QRS Dur : 084 ms QT Int : 394 ms P-R-T Axes : 040 034 032 degrees QTc Int : 409 ms NORMAL SINUS RHYTHM NORMAL ECG NO PREVIOUS ECGS AVAILABLE Confirmed by AMADO LOPES, LUIS ANGEL ([id number]) on 07/20/2019 2:47:40 PM Referred By: Confirmed By:LUIS ANGEL FISCHER MD
== END 2019-07-19 18:15 | disposition home or self-care (01) ==
LOC: JER 13:10
PROC: 3E033NZ Introduction of Analgesics, Hypnotics, Sedatives into Peripheral Vein, Percutaneous Approach (ICD-10-PCS; principal; 2019-07-19)
DX: R07.89 Other chest pain (principal); I10 Essential (primary) hypertension; E03.9 Hypothyroidism, unspecified; E78.00 Pure hypercholesterolemia, unspecified; Z98.1 Arthrodesis status; Z87.19 Personal history of other diseases of the digestive system
CPT/HCPCS: 36415; 71045-TC-FY; 80053; 82550; 83690; 83735; 84100; 84484; 85025; 93005; 93010; 99283-25; J0131

== ENCOUNTER 2019-10-22 12:56 | Emergency (ER) | payer OTHER, BC ==
[2019-10-22 13:19] VITALS: BP 136/91; PULSE 78; TEMP 98; BMI 31.1
--- NOTE | 2019-10-22 13:19 | PDOC ---
Rapid Medical Evaluation Chief Complaint: Injury Time Seen by Provider: 10/22/19 13:17 Medical Evaluation: Allergies Allergy/AdvReac Type Severity Reaction Status Date / Time No Known Allergies Allergy Verified 07/19/19 13:18 10/22/19 13:20 I have performed a brief in-person evaluation of this patient. The patient presents with a chief complaint of: left ring and little finger pain s/p jamming fingers today Pertinent physical exam findings: mild TTP to left ring and little finger. no swelling I have ordered the following:x-ray of left hand The patient will proceed to the ED for further evaluation. Discharge Disposition - Diagnosis Pain in left finger(s) - Discharge Dispostion Condition at time of disposition: Stable - Referrals - Patient Instructions - Post Discharge Activity
[2019-10-22] MEDS ORDERED: IBUPROFEN 600 MG TABLET (FP) PO ONE ×2 (14:06→14:10)
--- NOTE | 2019-10-22 14:16 | PDOC ---
History of Present Illness - General Chief Complaint: Injury Stated Complaint: LEFT FINGER HURT/[employer] Time Seen by Provider: 10/22/19 13:17 History Source: Patient Exam Limitations: No Limitations - History of Present Illness Initial Comments: 10/22/19 14:07 49-year-old male history of hypertension, GERD, [id number] presents complaining of pain to the base of left fourth digit after throwing out the garbage bag at approximately 12 noon today. Reports "my finger got caught on the bag ". Denies numbness, tingling, weakness, wrist pain or any other injuries. Did not take any pain medication today. ROS: GENERAL/CONSTITUTIONAL: No fever, chills, weakness, dizziness HEAD, EYES, EARS, NOSE AND THROAT: No changes in vision, No ear pain or discharge, No sore throat CARDIOVASCULAR: No chest pain RESPIRATORY: No shortness of breath or cough GASTROINTESTINAL: No pain, nausea, vomiting, diarrhea or constipation GENITOURINARY: No dysuria MUSCULOSKELETAL: Left fourth finger pain, no neck or back pain SKIN: No rash NEUROLOGIC: No headache, vertigo, loss of consciousness, or loss of sensation PE: GENERAL: well-appearing, NAD HEAD: NCAT EYES: Pupils equal, round and reactive to light, sclera anicteric, conjunctiva clear ENT: pharynx: no erythema, no exudate, uvula midline NECK: supple CHEST: nontender RESP: clear, no w/r/r CARDIO: rrr, no m/g/r ABD: +BS, soft, nontender, non distended BACK: no midline spinal ttp, no CVAT EXTREMITIES: Normal range of motion, no bony tenderness to palpation, no swelling noted NEUROLOGICAL: 5/5 strength and sensation, normal speech, normal gait SKIN: Warm, Dry Is this a multiple visit Asthma Patient?: No Past History - Past Medical History Allergies/Adverse Reactions: Allergies Allergy/AdvReac Type Severity Reaction Status Date / Time No Known Allergies Allergy Verified 07/19/19 13:18 Home Medications: Ambulatory Orders Levothyroxine [Synthroid -] 50 mcg PO DAILY 07/31/15 Losartan/Hydrochlorothiazide [Losartan-Hctz 50-12.5 mg Tab] 1 each PO DAILY C/Sourcherry/Celery/Grape Seed [Tart Guillaume Capsule] 1 each PO DAILY 05/03/18 Multivitamin with Iron [Multivitamins with Iron] 1 each PO DAILY 05/03/18 Ranitidine [Zantac -] 150 mg PO BID 05/04/18 Turmeric/Turmeric Root Extract [Turmeric 500 mg Capsule] 1 each PO DAILY Cyclobenzaprine HCl [Flexeril -] 10 mg PO TID PRN #21 tablet 08/20/18 Meloxicam 15 mg PO DAILY #20 tablet 08/20/18 Methocarbamol [Robaxin -] 500 mg PO TID PRN #21 tablet 08/20/18 Cyclobenzaprine HCl [Flexeril -] 10 mg PO HS #10 tablet 12/10/18 Ibuprofen 800 mg PO TID #30 tablet 12/10/18 Ibuprofen [Ibu] 600 mg PO TID #14 tablet 07/19/19 Anemia: No COPD: No GI Disorders: Yes (DIVERTICULITIS x4,h.pylori gastritis,gerd) HTN: Yes Hypercholesterolemia: Yes Psychiatric Problems: No Thyroid Disease: Yes (hypothyroidism) - Surgical History Abdominal Surgery: Yes (RIGHT INGUINAL HERNIA) Neurologic Surgery: No (laminectomy with fusion x3 1981,1982,2008) Orthopedic Surgery: Yes (lumbar spinal fusion 2x 82 1x83 [id number]) - Immunization History Td Vaccination: (05/16/06) Immunization Up to Date: Yes - Psycho Social/Smoking Cessation Hx Smoking Status: No Smoking History: Never smoked Have you smoked in the past 12 months: No Number of Cigarettes Smoked Daily: 0 Information on smoking cessation initiated: No Hx Alcohol Use: No Drug/Substance Use Hx: No Substance Use Type: None Hx Substance Use Treatment: No *Physical Exam - Vital Signs Last Vital Signs Temp Pulse Resp BP Pulse Ox 98.0 F 78 18 136/91 98 10/22/19 13:15 10/22/19 13:15 10/22/19 13:15 10/22/19 13:15 10/22/19 13:15 Medical Decision Making - Medical Decision Making 10/22/19 14:10 49-year-old male with history of hypertension and GERD complains of left fourth finger pain after throwing up a garbage bag, feels as though his finger got caught on the garbage bag. Did not take any pain medication. Left hand and finger films negative for acute fracture P.o. ibuprofen ordered stable for discharge Discharge - Discharge Information Problems reviewed: Yes Clinical Impression/Diagnosis: Pain in left finger(s) Condition: Stable Disposition: HOME - Admission No - Follow up/Referral Referrals: Oli Graham MD [Primary Care Provider] - - Patient Discharge Instructions Additional Instructions: Take ibuprofen 600 mg every 6 hours as needed for pain Follow-up with hand specialist within 1 week if symptoms do not improve - Post Discharge Activity
== END 2019-10-22 14:19 | disposition home or self-care (01) ==
LOC: JERFT 12:56
DX: S69.82XA Other specified injuries of left wrist, hand and finger(s), initial encounter (principal); M79.645 Pain in left finger(s); W23.0XXA Caught, crushed, jammed, or pinched between moving objects, initial encounter; Y93.89 Activity, other specified; Y92.89 Other specified places as the place of occurrence of the external cause; Y99.8 Other external cause status; I10 Essential (primary) hypertension; E78.00 Pure hypercholesterolemia, unspecified; E03.9 Hypothyroidism, unspecified; Z87.19 Personal history of other diseases of the digestive system
CPT/HCPCS: 73130-TC-LT-FY; 73140-TC-LT-FY; 99281-25